=== PATIENT | female | born 1950 | race Caucasian/White ===

== ENCOUNTER 2020-02-09 08:26 | Outpatient (REF) | payer MEDICARE, BC, SELFPAY ==
[2020-02-09 21:02] LABS: Abs Immature Grans 0.01 k/cumm (0.0-0.09); Absolute Basophil Count 0.02 k/cumm (0.0-0.2); Absolute Eosinophil Count 0.07 k/cumm (0.0-0.7); Absolute Lymphocyte Count 1.29 k/cumm (1.2-3.4); Absolute Monocyte Count 0.33 k/cumm (0.11-0.7); Basophils % 0.5; Eosinophils % 1.6; HCT 39.7 % (36.0-46.0); Immature Grans % 0.2 %; Lymphocytes % 29.2; Mean Corp. HGB Concentration 32.7 g/dL (32.0-36.0); Mean Corpuscular Hemoglobin 30.7 pg (27.0-33.0); Mean Corpuscular Volume 93.6 fL (80-95); Mean Platelet Volume 12.5 fL (8.0-11.0); Monocytes % 7.5; Platelet Count 166 x1000/uL (130-400); RBC 4.24 m/cumm (4.00-5.20); RBC Distribution Width 13.2 % (11.7-14.6); White Blood Cell Count 4.42 k/cumm (4.4-10.8)
[2020-02-09 21:07] LABS: ALT 20 U/L (14-59); AST 20 U/L (15-37); Albumin 3.8 g/dL (3.4-5.0); Alkaline Phosphatase 60 U/L (46-116); Anion Gap 6.8 mmol/L (3-11); BUN 13 mg/dL (7-18); Bilirubin, Total 0.8 mg/dL (0.2-1.0); CO2 30.2 mmol/L (21.0-32.0); CREATININE 0.77 mg/dL (0.55-1.02); Calculated LDL 151 mg/dL (<100); Chloride 105 mmol/L (98-107); Cholesterol 237 mg/dL (<200); Glucose 86 mg/dL (74-106); HDL Cholesterol 70 mg/dL (40-60); Potassium 3.9 mmol/L (3.5-5.1); Sodium 142 mmol/L (136-145); Total Protein 6.9 g/dL (6.4-8.2); Triglyceride 81 mg/dL (<150)
== END 2020-02-09 08:46 ==
LOC: NCHCN 08:26
PROVIDERS: PCP Physician Assistant; Visit Provider Physician Assistant
DX: R03.0 Elevated blood-pressure reading, without diagnosis of hypertension (principal); E78.89 Other lipoprotein metabolism disorders; Z87.891 Personal history of nicotine dependence
CPT/HCPCS: 80053; 80061; 85025

== ENCOUNTER 2020-05-02 08:28 | Emergency (ER) | payer MEDICARE, BC, SELFPAY ==
[2020-05-02] VITALS (38 sets, daily range): BP systolic 127–158; BP diastolic 58–88; PULSE 55–72; RESP 10–21; TEMP 36.4; O2SAT 94–100
--- NOTE | 2020-05-02 09:00 | DI.MRI_ITS ---
EXAM: MR BRAIN WO CLINICAL HISTORY: Dizziness, ataxia. TECHNIQUE: Multiplanar multisequence MRI was performed. COMPARISON: No exams were available for comparison FINDINGS: MR examination of brain was performed according to the usual protocol. There is significant motion a rtifact on multiple pulse sequences. Note is made small amount of fluid in a few left mastoid air cells, this may represent a serous masto iditis. Otherwise the temporal bone structures appear intact. Orbital structures appear intact. Pituitary is unremarkable in appearance as visualized. There is normal flow void in the xemaqf-gf-Uh llis vasculature. There are minimal Seema ventricular white matter signal changes consistent with mild microvascular isc hemic change. No other focal signal abnormality identified in the brain. Diffusion weighted is unremarkable, no evidence of infarction. Susceptibility weighted imaging shows no evidence of intracranial hemorrhage. IMPRESSION: Minimal microvascular ischemic changes of white matter. Examination is otherwise within normal limit s. DATA REPOSITORY:
--- NOTE | 2020-05-02 09:09 | W.ED.GENAD ---
Discharge Plan Disposition Patient Disposition: HOME Condition: Stable Discharge Details Chief Complaint: Dizzy/Sync Clinical Impression: Dizziness Primary Care Provider: Annamaria Angulo ED Provider: Hasmukh Collins Home Meds and New Rx's Prescriptions: New ondansetron HCl [Zofran] 4 mg tablet 4 mg PO Q8H PRNQty: 10 RF: 0 meclizine 25 mg tablet 25 mg PO TID PRN (Reason: dizziness) Qty: 10 RF: 0 Continued Antacid Extra-Strength 1 EACH tablet 2 tab-cap PO ONCE Qty: 1 RF: 0 cholecalciferol (vitamin D3) 1,000 UNIT capsule 1,000 unit PO DAILY RF: 0 Co Q-10 300 MG capsule 300 mg PO DAILY RF: 0 losartan 25 mg Tablet 25 mg PO DAILY RF: 0 PreserVision AREDS [id number] Tablet 1 tab PO DAILY RF: 0 Discharge Instructions Instructions: Dizziness (ED) Additional Instructions: Work-up in the ER did not reveal any obvious emergent process. Antivert and meclizine as directed. Please watch for new or worsening symptoms and return to the ER for any concerns. I do recommend reaching out your primary care provider today or tomorrow for prompt outpatient reevaluation Medical Decision Making <PAULINA Beverly - Last Filed: 05/02/20 12:50> 70-year-old female, history of smoking, hypertension, GERD, presents with dizziness, feeling unsteady, nausea and vomiting that began yesterday. Seems to be positional in nature. Denies recent illness or trauma, she is not anticoagulated. She has never had these symptoms in the past. Patient appears well, nontoxic is currently neurologically intact. As above she does have cerumen excessively in bilateral canals, does make evaluating her TMs difficult. Certainly appears to be more vertigo-like as opposed to posterior stroke however given her age and comorbidities will obtain MRI of brain, cardiac work-up, give IV fluids, Zofran and then give oral meclizine. Patient reports claustrophobia, 1 mg IV Ativan given prior to MRI Upon return from MRI patient reports that she feels dramatically improved although symptoms do maintain minimally. Patient was able to ambulate steadily to the restroom. Laboratory values appear unremarkable for emergent process. Potassium of 3.3 noted, p.o. potassium given. Case was discussed with Dr. Baron who personally evaluated the patient. Please see her note. MRI reveals minimal microvascular ischemic change of the white matter. Patient is agreeable to being observed in the ER for repeat EKG and troponin. Repeat EKG performed at 1207 reveals sinus rhythm, ventricular rate of 66. First-degree AV block. No STEMI. No dynamic changes when compared to initial EKG. Reviewed and interpreted with Dr. Baron. Repeat troponin is less than 0.05. Upon reevaluation patient is resting comfortably. No vomiting while under my care. She reports feeling nearly asymptomatic and is comfortable discharge. We discussed her MRI, laboratory work-up here in the ER. Patient is relieved and has no additional questions or concerns. Will be discharged with oral Zofran and meclizine. Patient was encouraged to contact her primary care provider later today for prompt outpatient reevaluation, return to the ER for new or evolving symptoms. Upon discharge patient remains neurologically intact is able to ambulate steadily Medical Records Medical records reviewed: Yes I reviewed the patient's medical records. Lab Data Lab results reviewed: Yes I reviewed the patient's lab results. Lab results narrative: Laboratory Tests Range/Units 05/02/20 05/02/20 05/02/20 09:15 09:15 09:15 WBC (4.4-10.8) k/cumm RBC (4.00-5.20) m/cumm Hgb (12.0-15.5) g/dL Hct (36.0-46.0) % MCV (80-95) fL MCH (27.0-33.0) pg MCHC (32.0-36.0) g/dL RDW (11.7-14.6) % Plt Count (130-400) x1000/uL MPV (8.0-11.0) fL Immature Gran % % Neutrophils % Lymphocytes % Monocytes % Eosinophils % Basophils % Absolute Neutrophils (1.2-6.7) k/cumm Absolute Lymphocytes (1.2-3.4) k/cumm Absolute Monocytes (0.11-0.7) k/cumm Absolute Eosinophils (0.0-0.7) k/cumm Absolute Basophils (0.0-0.2) k/cumm PT (9.3-11.0) sec 10.4 INR (0.9-1.1) 1.0 APTT (21.0-31.4) sec 20.4 L Sodium (136-145) mmol/L 139 Potassium (3.5-5.1) mmol/L 3.3 L Chloride (98-107) mmol/L 104 Carbon Dioxide (21.0-32.0) mmol/L 26.5 Anion Gap (3-11) mmol/L 8.5 BUN (7-18) mg/dL 18 Creatinine (0.55-1.02) mg/dL 0.83 Estimated GFR/1.73 m2 (mL/min/1.73m2) >= 60.00 Glucose (74-106) mg/dL 112 H Calcium (8.5-10.1) mg/dL 8.4 L Magnesium (1.8-2.4) mg/dL 1.9 Total Bilirubin (0.2-1.0) mg/dL 0.6 AST (15-37) U/L 21 ALT (14-59) U/L 22 Alkaline Phosphatase (46-116) U/L 54 Troponin I (<0.06) ng/mL < 0.05 Total Protein (6.4-8.2) g/dL 7.2 Albumin (3.4-5.0) g/dL 3.9 TSH (0.36-3.74) uIU/mL 2.14 Urine Color (Yellow) Urine Clarity (Clear) Urine pH (5-8) Ur Specific [place] (1.005-1.025) Urine Protein (Negative) mg/dL Urine Ketones (Negative) mg/dL Urine Blood (Negative) Urine Nitrite (Negative) Urine Bilirubin (Negative) Urine Urobilinogen (Up TO 0.2) EU/dL Ur Leukocyte Esterase (Negative) Urine RBC (0-2) HPF Urine WBC (0-5) HPF Ur Epithelial Cells (Negative) HPF Urine Crystals (Negative) HPF Urine Bacteria (Negative) HPF Urine Casts (Negative) LPF Urine Mucus (Negative) Urine Other (Negative) Ur Culture Indicated? Urine Glucose (Negative) mg/dL Range/Units 05/02/20 05/02/20 05/02/20 09:15 10:30 12:00 WBC (4.4-10.8) k/cumm 6.30 RBC (4.00-5.20) m/cumm 4.17 Hgb (12.0-15.5) g/dL 12.8 Hct (36.0-46.0) % 38.5 MCV (80-95) fL 92.3 MCH (27.0-33.0) pg 30.7 MCHC (32.0-36.0) g/dL 33.2 RDW (11.7-14.6) % 12.8 Plt Count (130-400) x1000/uL 157 MPV (8.0-11.0) fL 12.5 H Immature Gran % % 0.2 Neutrophils % 85.9 Lymphocytes % 8.9 Monocytes % 4.6 Eosinophils % 0.2 Basophils % 0.2 Absolute Neutrophils (1.2-6.7) k/cumm 5.42 Absolute Lymphocytes (1.2-3.4) k/cumm 0.56 L Absolute Monocytes (0.11-0.7) k/cumm 0.29 Absolute Eosinophils (0.0-0.7) k/cumm 0.01 Absolute Basophils (0.0-0.2) k/cumm 0.01 PT (9.3-11.0) sec INR (0.9-1.1) APTT (21.0-31.4) sec Sodium (136-145) mmol/L Potassium (3.5-5.1) mmol/L Chloride (98-107) mmol/L Carbon Dioxide (21.0-32.0) mmol/L Anion Gap (3-11) mmol/L BUN (7-18) mg/dL Creatinine (0.55-1.02) mg/dL Estimated GFR/1.73 m2 (mL/min/1.73m2) Glucose (74-106) mg/dL Calcium (8.5-10.1) mg/dL Magnesium (1.8-2.4) mg/dL Total Bilirubin (0.2-1.0) mg/dL AST (15-37) U/L ALT (14-59) U/L Alkaline Phosphatase (46-116) U/L Troponin I (<0.06) ng/mL < 0.05 Total Protein (6.4-8.2) g/dL Albumin (3.4-5.0) g/dL TSH (0.36-3.74) uIU/mL Urine Color (Yellow) Yellow Urine Clarity (Clear) Clear Urine pH (5-8) 6.0 Ur Specific [place] (1.005-1.025) 1.025 Urine Protein (Negative) mg/dL Trace H Urine Ketones (Negative) mg/dL Trace H Urine Blood (Negative) Negative Urine Nitrite (Negative) Negative Urine Bilirubin (Negative) Negative Urine Urobilinogen (Up TO 0.2) EU/dL 0.2 Ur Leukocyte Esterase (Negative) Negative Urine RBC (0-2) HPF 0-2 Urine WBC (0-5) HPF 3-5 Ur Epithelial Cells (Negative) HPF Negative Urine Crystals (Negative) HPF Moderate amorphous Urine Bacteria (Negative) HPF Urine Casts (Negative) LPF Comment Urine Mucus (Negative) Heavy Urine Other (Negative) Rare renal Ur Culture Indicated? No Urine Glucose (Negative) mg/dL Negative ECG Data Attestation: I personally reviewed and interpreted this ECG (s) as follows: Prior ECG tracings: available for review Interpretation: EKG performed at 0846 reviewed and interpreted with Dr. Baron. Sinus rhythm, ventricular rate of 62. First-degree AV block. [place] interval 220. No STEMI <Paulette Baron MD - Last Filed: 05/02/20 13:08> I have seen and examined the patient and agree with the exam and history as documented by the PA. Iris Ball is a 70-year-old woman presenting to the emergency department with new onset sensation of room spinning, worse with turning her head. Patient without similar symptoms in the past. Patient reports history of tinnitus over the past few months that has not changed, denies other ear complaints, had one episode of vomiting since onset of vertigo. Concern for central versus peripheral vertigo, suspect referral but given patient has not had similar symptoms in the past plan for MRI. Labs reviewed, nondiagnostic. Potassium 3.3, will replete with 40 mEq p.o. Patient reporting significant improvement in her symptoms since taking meclizine. MRI reported as negative per radiology. Patient walking without assistance in the emergency department. Repeat troponin negative. Plan for Rx meclizine. Patient discharged home by PA. Medical Records Medical records reviewed: Yes I reviewed the patient's medical records. Lab Data Lab results reviewed: Yes I reviewed the patient's lab results. ECG Data Attestation: I personally reviewed and interpreted this ECG (s) as follows: Interpretation: EKG shows sinus rhythm at 62, first-degree heart block, normal axis, no STEMI, nondiagnostic EKG Repeat EKG shows sinus rhythm at 66, first-degree block, normal axis, no major change from prior, no STEMI, nondiagnostic EKG HPI <PAULINA Beverly - Last Filed: 05/02/20 12:50> General Mode of arrival: ambulatory. Date/Time Provider Initiated Documentation: 05/02/20 08:31. Limitations to Documentation: no limitations. Information obtained by: patient. HPI Narrative: This is a 70-year-old female with history of hypertension, former smoker, who reports feeling dizzy, off balance, that began yesterday evening while reading a book. She reports that the sensation is worse with movement of her head, causing nausea, vomiting 1 time today. She has never felt this way before. She is not anticoagulated. She describes the sensation as being more off balanced with a small amount of dizziness, but no syncopal feeling. She denies any recent illness or trauma. She denies any pain whatsoever. Denies headache, neck pain, visual changes, chest pain, shortness of breath, abdominal pain, change in bowel or bladder habits, dysuria, focal weakness, numbness or tingling. Related Data Home Medications Medication Instructions Recorded Confirmed Antacid Extra-Strength 2 tab-cap PO ONCE #1 tab-cap 12/01/13 05/02/20 Co Q-10 300 mg PO DAILY 12/01/13 05/02/20 cholecalciferol (vitamin D3) 1,000 unit PO DAILY 12/01/13 05/02/20 PreserVision AREDS 1 tab PO DAILY 05/02/20 05/02/20 losartan 25 mg PO DAILY 05/02/20 05/02/20 meclizine 25 mg PO TID PRN #10 tab 05/02/20 ondansetron HCl [Zofran] 4 mg PO Q8H PRN #10 tab 05/02/20 Previous Rx's Medication Instructions Recorded meclizine 25 mg PO TID PRN #10 tab 05/02/20 ondansetron HCl [Zofran] 4 mg PO Q8H PRN #10 tab 05/02/20 Allergies Allergy/AdvReac Type Severity Reaction Status Date / Time Penicillins Allergy Intermediate ITCHING Unverified 05/02/20 08:41 General Stated Complaint: Dizzy/Sync ALLAN: 3 Review of Systems <PAULINA Beverly - Last Filed: 05/02/20 12:50> Constitutional Constitutional: Denies fatigue, Denies fever(s), Denies headache(s) and Denies weakness Eyes Eyes: Denies change in vision ENT Ears, Nose, Mouth, and Throat: Reports vertigo, Reports dizziness, Denies otalgia, Denies headache(s), Denies neck pain and Denies sore throat Cardiovascular Cardiovascular: Denies chest pain, Denies irregular heart rhythm and Denies dyspnea Respiratory Respiratory: Denies cough and Denies dyspnea Gastrointestinal Gastrointestinal: Denies abdominal pain, Denies diarrhea, Reports nausea and Reports vomiting Genitourinary Genitourinary: Denies dysuria Musculoskeletal Musculoskeletal: Denies back pain, Denies myalgias, Denies neck pain, Denies numbness and Denies tingling Integumentary/Breasts Skin/Breast: Denies rash Neurologic Neurologic: Reports vertigo, Reports dizziness, Denies headache(s), Denies numbness, Denies tingling and Denies weakness Endocrine Endocrine: Denies fatigue PFSH <PUALINA Beverly - Last Filed: 05/02/20 12:50> Surgical History section X 2 Ligation of fallopian tube Social History Smoking/Tobacco Use Status: Former Tobacco Use Alcohol Intake: current Alcohol Intake frequency: a few times a week Alcohol type: wine Drug use: Never Substance use type: does not use Do you feel safe at home: Yes Do you feel safe in your relationship?: Yes Exam <PAULINA Beverly - Last Filed: 05/02/20 12:50> Const General: cooperative, healthy appearing, comfortable and no acute distress Orientation: alert, awake and oriented x3 HENMT Head: normal to inspection, normocephalic and atraumatic Ears: EAC abnormal excessive cerumen bilaterally Face and sinus: normal facial exam Mouth: moist mucous membranes Throat: posterior oropharynx normal Eyes General: appearance normal, both eyes and all related structures Alignment and Position: alignment normal Periorbital: periorbital findings normal Eyelids: eyelids normal Conjunctivae: conjunctivae normal Sclera: sclerae normal Cornea: corneas normal Pupils: PERRL EOM: EOM intact bilaterally Direct ophthalmoscopy: normal light reflex Neck Neck: normal visual inspection, full ROM, no meningeal signs, trachea midline, supple and nontender Resp Effort & Inspection: normal respiratory effort and able to speak in complete sentences Auscultation: clear to auscultation bilaterally Cardio Rate: regular rate Rhythm: regular rhythm GI Inspection: normal to inspection Palpation: soft, not firm, no guarding, not rigid and nontender Back/Spine/Pelvis Back: No back tenderness Skin General skin exam: no rashes or lesions noted Neuro General: patient alert, patient awake, patient oriented x3, gait normal, moves all extremities and no focal motor deficits Cranial Nerves: CN's II-XI intact bilaterally Cognition: normal cognition Speech: speech normal Gait: normal gait Motor: muscle tone normal throughout and strength 5/5 throughout Sensory Exam: no sensory deficits noted Coordination: brtemp-ee-[id number] test normal, Does not sway with eyes open and rapid alternating movement UE normal Extrem General: normal to inspection, full ROM and capillary refill normal Psych Appearance: grossly normal Mental Status: mental status grossly normal Course <PAULINA Beverly - Last Filed: 05/02/20 12:50> Vital Signs Vital signs: Vital Signs Temperature 36.4 C L 05/02/20 08:34 Pulse 67 05/02/20 08:34 Blood Pressure 158/75 H 05/02/20 08:34 Pulse Oximetry 99 05/02/20 08:34 Temperature 36.4 C L 05/02/20 08:34 Temperature Source Temporal Artery Scan 05/02/20 08:34 Pulse 67 05/02/20 08:34 Respiratory Rate 18 05/02/20 08:39 Respiratory Effort Non-Labored 05/02/20 08:39 Respiratory Depth Normal 05/02/20 08:39 Respiratory Pattern Normal 05/02/20 08:39 Blood Pressure 158/75 H 05/02/20 08:34 Blood Pressure Position Sitting 05/02/20 08:34 Pulse Oximetry 99 05/02/20 08:34 Oxygen Delivery Method Room Air 05/02/20 08:34 Oxygen Flow Rate 0 05/02/20 08:34 Pain Level 0 05/02/20 08:34
[2020-05-02] MEDS: Ondansetron 4 MG/2 ML VIAL IVP (09:23)
[2020-05-02] MEDS: Normal Saline 1,000 ML 1000 ML IV (09:23)
[2020-05-02] MEDS: Meclizine 25 MG TAB PO (09:23)
[2020-05-02 09:25] LABS: Abs Immature Grans 0.01 k/cumm (0.0-0.09); Absolute Basophil Count 0.01 k/cumm (0.0-0.2); Absolute Eosinophil Count 0.01 k/cumm (0.0-0.7); Absolute Lymphocyte Count 0.56 k/cumm (1.2-3.4); Absolute Monocyte Count 0.29 k/cumm (0.11-0.7); Absolute Neutrophil Count 5.42 k/cumm (1.2-6.7); Basophils % 0.2; Eosinophils % 0.2; HCT 38.5 % (36.0-46.0); HGB 12.8 g/dL (12.0-15.5); Immature Grans % 0.2 %; Lymphocytes % 8.9; Mean Corp. HGB Concentration 33.2 g/dL (32.0-36.0); Mean Corpuscular Hemoglobin 30.7 pg (27.0-33.0); Mean Corpuscular Volume 92.3 fL (80-95); Mean Platelet Volume 12.5 fL (8.0-11.0); Monocytes % 4.6; Neutrophils % 85.9; Platelet Count 157 x1000/uL (130-400); RBC 4.17 m/cumm (4.00-5.20); RBC Distribution Width 12.8 % (11.7-14.6)
[2020-05-02] MEDS: LORazepam 2 MG/ML VIAL 1 MG IVP (09:39)
[2020-05-02 09:42] LABS: ALT 22 U/L (14-59); AST 21 U/L (15-37); Albumin 3.9 g/dL (3.4-5.0); Alkaline Phosphatase 54 U/L (46-116); Anion Gap 8.5 mmol/L (3-11); BUN 18 mg/dL (7-18); Bilirubin, Total 0.6 mg/dL (0.2-1.0); CO2 26.5 mmol/L (21.0-32.0); CREATININE 0.83 mg/dL (0.55-1.02); Calcium 8.4 mg/dL (8.5-10.1); Chloride 104 mmol/L (98-107); Glucose 112 mg/dL (74-106); Potassium 3.3 mmol/L (3.5-5.1); Sodium 139 mmol/L (136-145); Total Protein 7.2 g/dL (6.4-8.2)
[2020-05-02 09:46] LABS: Troponin I < 0.05 ng/mL (<0.06)
[2020-05-02 09:48] LABS: PTT Activated 20.4 sec (21.0-31.4); Prothrombin Time 10.4 sec (9.3-11.0)
[2020-05-02 10:15] LABS: Magnesium 1.9 mg/dL (1.8-2.4); TSH 2.14 uIU/mL (0.36-3.74)
[2020-05-02] MEDS: Potassium Chloride 20 MEQ TABCR 40 MEQ PO (10:37)
[2020-05-02 10:41] LABS: Bilirubin Negative (Negative); Blood Negative (Negative); Clarity Clear (Clear); Glucose Negative (Negative); Ketones Trace mg/dL (Negative); Leukocyte Esterase Negative (Negative); Nitrite Negative (Negative); Specific Gravity 1.025 (1.005-1.025); Urobilinogen 0.2 EU/dL (Up TO 0.2)
[2020-05-02 10:59] LABS: Epithelial Cells Negative HPF (Negative); Other Cells Rare Renal (Negative); RBC 0-2 HPF (0-2)
[2020-05-02 11:00] LABS: Crystals Moderate Amorphous HPF (Negative); Mucus Heavy (Negative)
[2020-05-02 11:01] LABS: C & S Indicated? No
[2020-05-02 12:27] LABS: Troponin I < 0.05 ng/mL (<0.06)
== END 2020-05-02 12:53 | disposition home or self-care (01) ==
PROVIDERS: Emergency Provider Physician Assistant; PCP Physician Assistant
DX: R42 Dizziness and giddiness (principal); R11.2 Nausea with vomiting, unspecified; E87.6 Hypokalemia; I10 Essential (primary) hypertension
CPT/HCPCS: 36415; 36416; 80053; 82962; 93005; 96361; 96374; 96375; 99285; 70551; 81003; 81015; 83735; 84443; 84484; 85025; 85610; 85730; 93010; 99284; J2060; J2405

== ENCOUNTER 2020-06-01 02:12 | Outpatient (CLI) | payer MEDICARE, BC, SELFPAY ==
--- NOTE | 2020-06-01 | DI.MAMMO_ITS ---
EXAM: MG MAMMO SCREENING CLINICAL HISTORY: SCREENING, Z12.31 TECHNIQUE: Bilateral full field digital CC and MLO mammographic images were obtained with 3D tomosyn thesis and utilizing computer aided detection (CAD). COMPARISON: Available for comparison. FINDINGS: Masses/Architectural Distortion: The nodule in the upper outer quadrant of the right breast appears u nchanged. Microcalcifications: No suspicious pleomorphic-type are seen. Skin Thickening/Nipple Retraction: None. IMPRESSION: 1. No significant interval change with no specific features of malignancy noted. 2. Unless there is more urgent need, screening mammography is recommended, as per [employer] guidelines. BI-RADS Category 1 - Negative Breast Density - Category B - Scattered areas of fibroglandular density A negative radiographic report should not delay biopsy if a dominant or clinically suspicious mass is present. Up to ten percent of cancers are not identified on mammography. A negative report may reinforce clinical impression. Adenosis and dense breasts may obscure an underlying neoplasm. False positive reports average 6 to 10%. Patient will receive a letter notifying them of these results.
== END 2020-06-01 02:32 ==
PROVIDERS: PCP Physician Assistant; Visit Provider Physician Assistant
DX: Z12.31 Encounter for screening mammogram for malignant neoplasm of breast (principal)
CPT/HCPCS: 77063; 77067

== ENCOUNTER 2021-07-10 10:19 | Outpatient (REF) | payer MEDICARE, BC, SELFPAY ==
[2021-07-10 19:48] LABS: ALT 18 U/L (14-59); AST 19 U/L (15-37); Albumin 3.8 g/dL (3.4-5.0); Alkaline Phosphatase 58 U/L (46-116); Anion Gap 7.7 mmol/L (3-11); BUN 11 mg/dL (7-18); Bilirubin, Total 0.8 mg/dL (0.2-1.0); CO2 29.3 mmol/L (21.0-32.0); CREATININE 0.7 mg/dL (0.55-1.02); Calcium 8.6 mg/dL (8.5-10.1); Calculated LDL 142 mg/dL (<100); Chloride 104 mmol/L (98-107); Cholesterol 235 mg/dL (<200); Glucose 87 mg/dL (74-106); HDL Cholesterol 73 mg/dL (40-60); Potassium 3.8 mmol/L (3.5-5.1); Sodium 141 mmol/L (136-145); Total Protein 7.1 g/dL (6.4-8.2); Triglyceride 101 mg/dL (<150)
== END 2021-07-10 10:20 | disposition home or self-care (01) ==
LOC: NCHCN 10:19
PROVIDERS: PCP Physician Assistant; Visit Provider Physician Assistant
DX: I10 Essential (primary) hypertension (principal); E78.5 Hyperlipidemia, unspecified
CPT/HCPCS: 80053; 80061

== ENCOUNTER 2021-08-23 11:55 | Outpatient (REF) | payer MEDICARE, BC, SELFPAY ==
[2021-08-25 10:53] LABS: COVID-19 RT-PCR UVMMC Result Negative (Negative)
== END 2021-08-23 11:56 | disposition home or self-care (01) ==
LOC: NCHCN 11:55
PROVIDERS: PCP Physician Assistant; Visit Provider Internal Medicine
DX: Z20.822 Contact with and (suspected) exposure to COVID-19 (principal)
CPT/HCPCS: U0003

== ENCOUNTER 2022-04-04 15:44 | Outpatient (REF) | payer MEDICARE, BC, SELFPAY ==
[2022-04-04 21:55] LABS: Anion Gap 7.8 mmol/L (3-11); BUN 11 mg/dL (7-18); CO2 29.2 mmol/L (21.0-32.0); CREATININE 0.7 mg/dL (0.55-1.02); Calcium 8.6 mg/dL (8.5-10.1); Chloride 104 mmol/L (98-107); Glucose 86 mg/dL (74-106); Potassium 3.9 mmol/L (3.5-5.1); Sodium 141 mmol/L (136-145)
== END 2022-04-04 15:45 | disposition home or self-care (01) ==
LOC: NCHCN 15:44
PROVIDERS: PCP Physician Assistant; Visit Provider Physician Assistant
DX: I10 Essential (primary) hypertension (principal)
CPT/HCPCS: 80048

== ENCOUNTER → 2022-06-08 00:03 | Outpatient (CLI) | payer MEDICARE, BC, SELFPAY ==
--- NOTE | 2022-06-08 | DI.MAMMO_ITS ---
Exam(s) MAMMO SCREENING EXAM: MAMMO SCREENING CLINICAL HISTORY: SCREENING, Z12.31 TECHNIQUE: Mammograms were interpreted according to the usual protocol including computer analysis w [employer] CAD system, tomosynthesis and C-view imaging. COMPARISON: 2020 FINDINGS: The breasts are composed of mainly fatty density , Breast Density category A. No suspicious masses or suspicious microcalcifications are seen. No skin thickening or abnormal axillary lymph nodes are seen. There has been no significant change from prior exams. IMPRESSION: BI-RADS Category 1, Negative mammogram Yearly screening mammography is recommended. Breast Density - Category A, fatty density. A negative radiographic report should not delay biopsy if a dominant or clinically suspicious mass is present. Up to ten percent of cancers are not identified on mammography. A negative report may reinforce clinical impression. Adenosis and dense breasts may obscure an underlying neoplasm. False positive reports average 6 to 10%. Patient will receive a letter notifying them of these results.
--- OUTSIDE RECORDS SUMMARY | 2022-06-08 00:05 | XMS_ITS | Encounter Summary ---
:1950 Author Organization [facility] [place] [address] Care Team Providers Name Role Phone Lorne Sorenson MD Primary Care Provider Reason for Visit Reason Comments Eye Problem Follicular bleharoconjunctiv itis ou. failed response to topical tx. first dx'd 2000 os. re ccurence 2010. aactual date 10/11. pt states eyes have gotten a little better over last couple of weeks but oozing and stickiness remains. ou. puff y at times, needs more light to read,. tearing. Encounter Details Date Type Department Care Team Description 05/23/2011 Office Visit Ophthalmology at [facility] Jose Bourgeois Conjunctivitis, chronic, fol licular (Primary Dx); [facility] MD Alejandro Blepharitis of both eyes; [place] [address] CENTER [phone] OPHTHALMOLOGY DEPT. [place], [place] [address] Social History Tobacco Use Types Packs/Day Years Used Date Former Smoker Quit: 05/23/19 80 Alcohol Use Standard Drinks/Week Comments Yes 0 (1 standard drink = 0.6 oz pure alcoho l) wine dinner Alcohol Habits Answer Date Recorded How often do you have a drink containing alcohol? Not asked How many drinks containing alcohol do you have on a typical Not asked day when you are drinking? How often do you have six or more drinks on one occasion? No t asked Comment: wine dinner 05/23/2011 Sex Assigned at Date Recorded Not on file documented as of this encounter Progress Notes Jose Michelle MD - 05/23/2011 9:43 AM EDT Ro Ball is a 61 y.o.. Encounter Diagnoses Name Primary? Conjunctivitis, chronic, follicular Yes ??? Blepharitis of both eyes ??? Cataract Symptoms and findings seem much improved as compared with your May 10 letter to me. The DDx here includes drug reaction (most likely), chlamydial conjunctivitis (doubt), chronic slow growing bacterial conjunctivitis (possible), viral conjunctivitis (doubt) or molluscum contagiosa related (none seen). I am hopeful that her symptoms will continue to resolve off eye drop therapy. We discussed the possibility of skin testing to see if she is allergic to any of the eye meds she was on or their components, but she declined this option. Plan: - Obtained conjunctival culture- will call prn unusual organsims - Continue current AT therapy with no addition of meds - Follow up 1 month with you or myself or as needed - Findings and concerns discussed with Ro and she expresses understanding. -Upon Return IOP documented in this encounter Nursing Notes 05/23/2011 8:45 AM EDT >> JOSE MICHELLE MD SatMay 23, 2011 9:46 AM As below and in Dr. Garg letter. Follicular conjunctivitis in patient tx with multiple eye meds for blepharoconjunctivitis tx with multiple meds including t- dex, zylet, azocyte - also has history episcleritis 2000. Off everything except AT since mid april. Better but still some AM discharge >> LUPIS GASTELUM SatMay 23, 2011 9:18 AM Description:Patient presents with: Eye Problem - Follicular bleharoconjunctivitis ou. failed response to topical tx. first dx'd 2000 os. re ccurence 12/2010. actual date 10/11. pt states eyes have gotten a little better over last coupleof weeks but oozing and stickiness remains. ou. puffy at times, needs more light to read,. tearing. Location: both eye Duration: 8 months Rapidity of Onset:unknown Severity: relative to dx Condition:Improving Somewhat over the last couple of weeks Pain:none Associated Symptoms: tearing, puffiness, oozing. No pain no photophobia see attached note Dr. Davis documented in this encounter Plan of Treatment Not on filedocumented as of this encounter Procedures Procedure Name Priority Date/Time Associated Diagnosis Comme nts EYE CULTURE Routine 05/23/2011 12:21 PM Conjunctivitis, Resul ts for this EDT chronic, follicular procedur e are in the results section . documented in this encounter Results Eye culture Conjunctiva; Eye, Right (05/23/2011 12:21 PM EDT) Component Value Ref Test Analysis Performed At [facility] [employer] Range Method Time Signature Eye Culture CERNER ? Patient Name: RO BALL ? Ordered By: JOSE MICHELLE [facility] ? MR#: [id number] ?LOC: ??4B ? /Sex: ??1950 (61 years), ? Female ? PROCEDURE: Eye Culture ?SOURCE: Conjunct ? COLLECTED: 05/23/2011 12:21 ? BODY SITE: Right Eye ? STARTED: 05/23/2011 12:21 ? STAINS / PREPARATIONS ? Gram Stain Report ? Verified:05/23/2011 14:27 ? Few White Blood Cells seen ? No microorganisms seen. ? FINAL REPORT ? Final Report ? Verified:05/26/2011 11:12 ? Rare Coagulase negative Staphylococcus species ? PRELIMINARY REPORT ? Preliminary Report ? Verified:05/24/2011 07:52 ? Rare Coagulase negative Staphylococcus species ? Specimen (Source) Anatomical Collection Method Collection Time Re ceived Time Location / / Volume Laterality Specimen from RIGHT EYE 05/23/2011 12:21 05/23/2011 conjunctiva STRUCTURE / PM EDT 12:21 PM EDT (specimen) Unknown Jose Michelle MD MICROBIOLOGY - GENERAL ORDER CAROL Performing Organization Address City/State/ZIP Code Phon e Number [address] LABORATORY [facility] documented in this encounter Visit Diagnoses Diagnosis Conjunctivitis, chronic, follicular - Pr imary Chronic follicular conjunctivitis Blepharitis of both eyes Blepharitis, unspecified Cataract Unspecified cataract documented in this encounter Care Teams Rn Obgyn Relationship Specialty Start Date End Date Lorne Sorenson MD PCP - General 05/23/11 [address] [place] [address] documented as of this encounter
--- OUTSIDE RECORDS SUMMARY | 2022-06-08 00:05 | XMS_ITS | Clinical Summary ---
:1950 Author Organization [facility] Address [address] [place] [id number] Care Team Providers Name Role Phone Unknown, Provider Primary Care Provider Social History Tobacco Use Types Packs/Day Years Used Date Never Assessed Sex Assigned at Date Recorded Not on file Plan of Treatment Health Maintenance Due Date Last Done Comments Fall Risk Screening 02/26/2016 Care Teams Blow Moulding Machine Operator Relationship Specialty Start Date End Date Unknown, Provider, PCP - General 10/15/15
--- OUTSIDE RECORDS SUMMARY | 2022-06-08 00:05 | XMS_ITS | Encounter Summary ---
:[address] [facility] Address [address] [place] [address] Care Team Providers Name Role Phone Unavailable Primary Care Provider Unavailable Encounter Details Date Type Department Care Team Description 05/22/2007 Results Only [facility] - Autumn Hamilton od, Mei Allen, INSPECTORS AND REGULATORY OFFICERS conversion [address] [place] [phone] (Wo rk) Social History Tobacco Use Types Packs/Day Years Used Date Never Assessed Sex Assigned at Date Recorded Not on file documented as of this encounter Plan of Treatment Not on filedocumented as of this encounter Procedures Procedure Name Priority Date/Time Associated Diagnosis Comme nts CYTOPATHOLOGY Routine 05/22/2007 0:00 EDT Results for this procedure are i n the results section . documented in this encounter Results CYTOPATHOLOGY (05/22/2007 0:00 EDT) Pathology Report: CYTOPATHOLOGY REPORT [facility] Reports generated via electronic interface contain harley ginal data; however they are lacking the format of the original re port. Caution should be taken when reading/interpreting unfo rmatted reports. Name: ? RO BALL ? Accession #: ? [id number] : ? 1950 (Age: 57) ??F ?Collect Date: ? 05/03 Location: ? [facility] ? Receive Date : ? 05/23/2007 Provider: ?MEI AVILES INSPECTORS AND REGULATORY OFFICERS Copy to: ? Specimen/Source: ? ThinPrep Pap Test, Cervix/Endocervix, processed on [employer] ThinPrep Imaging System, with manual evaluation Last Menstrual Period: ? 2001 Other: ? HPVA - HPV testing requested if ASC-US on the current ThinPrep Pap test. ? SPECIMEN ADEQUACY ? Satisfactory for Evaluation - assessment of transformation zone component not appl icable ( e.g. atrophy, vaginal sample, hysterectomy) GENERAL CATEGORIZATION ? Negative for Intraepithelial Lesion or Malignan cy ? Document reviewed and electronically signed by: ? Mei Sage, SCT(ASCP) ? Report Date: ??05/28/2007 14:26 End of Report Specimen Performing Organization Address City/State/ZIP Code Phon e Number [facility] [address] [place] [address] SERVICES [facility] [address] [place] [address] documented in this encounter Visit Diagnoses Not on filedocumented in this encounter
--- OUTSIDE RECORDS SUMMARY | 2022-06-08 00:05 | XMS_ITS | Encounter Summary ---
:1950 Author Organization [facility] Address [address] [place] [address] Care Team Providers Name Role Phone Unavailable Primary Care Provider Unavailable Encounter Details Date Type Department Care Team Description 05/28/[address] Results [address] [facility] - Autumn Hamilton od, Mei Allen, PLASTIC TECHNICIAN conversion [address] [place] [phone] (Wo rk) Social History Tobacco Use Types Packs/Day Years Used Date Never Assessed Sex Assigned at Date Recorded Not on file documented as of this encounter Plan of Treatment Not on filedocumented as of this encounter Procedures Procedure Name Priority Date/Time Associated Diagnosis Comme nts CYTOPATHOLOGY Routine 05/28/2006 0:00 EDT Results for this procedure are i n the results section . documented in this encounter Results CYTOPATHOLOGY (05/28/2006 0:00 EDT) Pathology Report: CYTOPATHOLOGY REPORT [facility] Reports generated via electronic interface contain harley ginal data; however they are lacking the format of the original re port. Caution should be taken when reading/interpreting unfo rmatted reports. Name: ? RO BALL ? Accession #: ? [id number] : ? 1950 (Age: 56) ??F ?Collect Date: ? 05/03 Location: ? [facility] ? Receive Date : ? 05/29/2006 Provider: ?MEI AVILES PLASTIC TECHNICIAN Copy to: ? Specimen/Source: ? ThinPrep Pap Test, Cervix/Endocervix, processed on [employer] ThinPrep Imaging System, with manual evaluation Last Menstrual Period: ? 2001 Other: ? HPVA - HPV testing requested if ASC-US on the current ThinPrep Pap test. ? SPECIMEN ADEQUACY ? Satisfactory for Evaluation - transformation zone component present GENERAL CATEGORIZATION ? Negative for Intraepithelial Lesion or Malignan cy ? Document reviewed and electronically signed by: ? ISSA Toney(ASCP) ? Report Date: ??05/31/2006 10:23 End of Report Specimen Performing Organization Address City/State/ZIP Code Phon e Number [facility] [address] [place] [address] SERVICES [facility] [address] [place] [address] documented in this encounter Visit Diagnoses Not on filedocumented in this encounter
--- OUTSIDE RECORDS SUMMARY | 2022-06-08 00:05 | XMS_ITS | Encounter Summary ---
:1950 Author Organization [facility] Address [address] [place] [address] Care Team Providers Name Role Phone Unavailable Primary Care Provider Unavailable Encounter Details Date Type Department Care Team Description 11/16/2003 Results Only [facility] - Autumn Hamilton od, Mei Allen, FAMILY WELFARE SOCIAL WORK PROFESSOR conversion [address] [place] [phone] (Wo rk) Social History Tobacco Use Types Packs/Day Years Used Date Never Assessed Sex Assigned at Date Recorded Not on file documented as of this encounter Plan of Treatment Not on filedocumented as of this encounter Procedures Procedure Name Priority Date/Time Associated Diagnosis Comme nts CYTOPATHOLOGY Routine 11/16/2003 0:00 EST Results for this procedure are i n the results section . documented in this encounter Results CYTOPATHOLOGY (11/16/2003 0:00 EST) Pathology Report: CYTOPATHOLOGY REPORT [facility] Reports generated via electronic interface contain harley ginal data; however they are lacking the format of the original re port. Caution should be taken when reading/interpreting unfo rmatted reports. Name: ? RO BALL ? Accession #: ? [id number] : ? 1950 (Age: 53) ??F ?Collect Date: ? 11/01 Location: ? [facility] ? Receive Date : ? 11/19/2003 Provider: ?MEI AVILES FAMILY WELFARE SOCIAL WORK PROFESSOR Copy to: ? Specimen/Source: ?Conventional Pap Test, Cer vix/Endocervix Last Menstrual Period: ? 11/02 ? SPECIMEN ADEQUACY ? Satisfactory for Evaluation - transformation zone component absent GENERAL CATEGORIZATION ? Negative for Intraepithelial Lesion or Malignan cy ? Document reviewed and electronically signed by: ? ISSA Singh(ASCP) ? Report Date: ??11/24/2003 09:50 End of Report Specimen Performing Organization Address City/State/ZIP Code Phon e Number [facility] [address] [place] [phone] SERVICES [facility] [address] [place] [address] documented in this encounter Visit Diagnoses Not on filedocumented in this encounter
--- OUTSIDE RECORDS SUMMARY | 2022-06-08 00:05 | XMS_ITS | Encounter Summary ---
:1950 Author Organization [facility] Address [address] [place] [address] Care Team Providers Name Role Phone Unknown, Provider Primary Care Provider Encounter Details Date Type Department Care Team Description 08/24/2021 Lab Requisition [facility] Outr Resulting Lab, Pathology & Laboratory Provider [facility] [address] [place] [phone] Social History Tobacco Use Types Packs/Day Years Used Date Never Assessed Sex Assigned at Date Recorded Not on file documented as of this encounter Plan of Treatment Not on filedocumented as of this encounter Procedures Procedure Name Priority Date/Time Associated Diagnosis Comme nts COVID-19 [facility] Today 08/23/2021 9:00 EDT LAB PCR COVID-19 TESTING Routine 08/23/2021 9:00 EDT Resu lts for this procedure are i n the results section. documented in this encounter Results COVID-19 TEST [facility] PCR (08/23/2021 9:00 EDT) Specimen Swab - Entire nasopharynx (body structur e) Performing Organization Address City/State/ZIP Code Phon e Number [facility] [address] [place] [address] SERVICES COVID-19 TESTING (08/23/2021 9:00 EDT) COVID-19 rt-PCR Negative Negative [facility] Result Comment: [facility] This test has not been FDA c leared or approved. This test has been authorized by FDA under an EUA for use by authorized laboratories. This test has been authorized only for detection of nucleic acid fro SERVICES m 2018-nCoV, not for any oth er viruses or pathogens. This test is only authorized for the duration of the declaration that circumstances exist justifying the authorization of emergency use of in vitro d iagnostic tests for detectio n and/or diagnosis of 2019-nCoV under section 564(b)(1) of Act, 21 U.S.C ?? 360bbb-3(b) (1), unless the authorization is terminated or revoked sooner. Negative results do not prec lude 2019-nCoV infection and should not be used as the sole basis for treatment or other patient management decisions. Negative results must be combined with clinical observa tions, patient history, and epidemiological informatio n. Testing was performed using the sekou SARS-CoV-2 assay ([employer] on the Sekou 6800 System Performing Lab Sekou 6800 [facility] Lab [facility] SERVICES Specimen Swab Performing Organization Address City/State/ZIP Code Phon e Number [facility] [address] [place] [address] SERVICES documented in this encounter Visit Diagnoses Not on filedocumented in this encounter Care Teams In Store Marketer Relationship Specialty Start Date End Date Unknown, Provider, PCP - General 10/15/15 documented as of this encounter
--- OUTSIDE RECORDS SUMMARY | 2022-06-08 00:05 | XMS_ITS | Encounter Summary ---
:1950 Author Organization [facility] [place] [address] Care Team Providers Name Role Phone Antonio Comer MD Primary Care Provider Encounter Details Date Type Department Care Team Description 05/22/2011 Abstract Ophthalmology at [facility] Mei Britton, [place] [phone] Social History Tobacco Use Types Packs/Day Years Used Date Never Assessed Sex Assigned at Date Recorded Not on file documented as of this encounter Plan of Treatment Not on filedocumented as of this encounter Visit Diagnoses Not on filedocumented in this encounter Care Teams Assistance Representative Relationship Specialty Start Date End Date Antonio Comer MD PCP - General 10/24/10 05/22/11 [address] [place] [address] documented as of this encounter
--- OUTSIDE RECORDS SUMMARY | 2022-06-08 00:05 | XMS_ITS | Encounter Summary ---
:1950 Author Organization [facility] Address [address] [place] [address] Care Team Providers Name Role Phone Unavailable Primary Care Provider Unavailable Encounter Details Date Type Department Care Team Description 02/02/2005 Results Only [facility] - Autumn Hamilton od, Mei Allen, INTERMODAL DISPATCHER conversion [address] [place] [phone] (Wo rk) Social History Tobacco Use Types Packs/Day Years Used Date Never Assessed Sex Assigned at Date Recorded Not on file documented as of this encounter Plan of Treatment Not on filedocumented as of this encounter Procedures Procedure Name Priority Date/Time Associated Diagnosis Comme [facility] CYTOPATHOLOGY Routine 02/02/2005 0:00 EST Results for this procedure are i n the results section . documented in this encounter Results CYTOPATHOLOGY (02/02/2005 0:00 EST) Pathology Report: CYTOPATHOLOGY REPORT [facility] Reports generated via electronic interface contain harley ginal data; however they are lacking the format of the original re port. Caution should be taken when reading/interpreting unfo rmatted reports. Name: ? RO BALL ? Accession #: ? [id number] : ? 1950 (Age: 54) ??F ?Collect Date: ? 03/2005 Location: ? [facility] ? Receive Date : ? 02/06/2005 Provider: ?MEI AVILES INTERMODAL DISPATCHER Copy to: ? Specimen/Source: ?ThinPrep Pap Test, Cervix/ Endocervix Last Menstrual Period: ? 2001 Other: ? Additional clinical information: 11/16/03 pap nl. HPVA - HPV testing requested if ASC-US on the current ThinPrep Pap test. ? SPECIMEN ADEQUACY ? Satisfactory for Evaluation - transformation zone component present GENERAL CATEGORIZATION ? Negative for Intraepithelial Lesion or Malignan cy ? Document reviewed and electronically signed by: ? LAUREL Voss(ASCP) ? Report Date: ??02/08/2005 11:29 End of Report Specimen Performing Organization Address City/State/ZIP Code Phon e Number [facility] [address] [place] [address] SERVICES [facility] [address] [place] [address] documented in this encounter Visit Diagnoses Not on filedocumented in this encounter
--- OUTSIDE RECORDS SUMMARY | 2022-06-08 00:05 | XMS_ITS | Encounter Summary ---
:1950 Author Organization [facility] [place] [address] Care Team Providers Name Role Phone Lorne Sorenson MD Primary Care Provider Reason for Visit Reason Comments Follow-up pt for follow up of fbc ou. was improving but has seemed to get worse again last couple . only gabe ngemade by pt was stopped taking flaxseed, omg3 Encounter Details Date Type Department Care Team Description 06/13/2011 Follow-Up Ophthalmology at [facility] Jose Bourgeois, Conjunctivitis, chronic, fol licular; [facility] [place] [phone] [facility] [phone] DR OPHTHALMOLOGY DEPT. [place], [place] [address] Social History Tobacco Use Types [...] on file documented as of this encounter Patient Instructions Patient InstructionsJose Michelle MD - 06/13/2011 11:59 AM EDT For medications not prescribed by the Ophthalmology (Eye) Clinic, please follow up with your PCP (primary care provider) for instructions. documented in this encounter Progress Notes Jose Michelle MD - 06/13/2011 11:59 AM EDT Iris Ball is a 61 y.o.. Encounter Diagnoses Name Primary? Conjunctivitis, chronic, follicular ??? Cataract Symptoms resolved and findings, follicles, are less prominent. Culture only grew Coag neg staph. Plan: No treatment - Follow up Dr. Davis or me as needed - Findings and concerns discussed with Iris and she expresses understanding. -Upon Return IOP documented in this encounter Nursing Notes 06/13/2011 11:15 AM EDT >> JOES MICHELLE MD SatJun 13, 2011 12:00 PM Doing well. Cultures only coag neg staph. Doing well without any therapy. >> LUPIS GASTELUM SatJun 13, 2011 11:31 AM Description:Patient presents with: Follow-up - pt for follow up of fbc ou. was improving but has seemed to get worse again last couple. only changemade by pt was stopped taking flaxseed, omg3 Location: both eye Duration: ongoing Condition:got better than worse again Pain:none Associated Symptoms: has had lid stickiness last several days. documented in this encounter Plan of Treatment Not on filedocumented as of this encounter Visit Diagnoses Diagnosis Conjunctivitis, chronic, follicular Chronic follicular conjunctivitis Cataract Unspecified cataract documented in this encounter Care Teams Technical Service Representative Relationship Specialty Start Date End Date Lorne Sorenson MD PCP - General 05/23/11 [address] [place] [address] documented as of this encounter
--- OUTSIDE RECORDS SUMMARY | 2022-06-08 00:05 | XMS_ITS | Encounter Summary ---
:1950 Author Organization [facility] Address [address] [place] [address] Care Team Providers Name Role Phone Unavailable Primary Care Provider Unavailable Encounter Details Date Type Department Care Team Description 06/11/2000 Results Only [facility] - Autumn Hamilton od, Mei Allen, HOSE HANDLER conversion [address] [place] [phone] (Wo rk) Social History Tobacco Use Types Packs/Day Years Used Date Never Assessed Sex Assigned at Date Recorded Not on file documented as of this encounter Plan of Treatment Not on filedocumented as of this encounter Procedures Procedure Name Priority Date/Time Associated Diagnosis Comme nts CYTOPATHOLOGY Routine 06/11/2000 0:00 EDT Results for this procedure are i n the results section . documented in this encounter Results CYTOPATHOLOGY (06/11/2000 0:00 EDT) Pathology Report: CYTOPATHOLOGY REPORT [facility] Reports generated via electronic interface contain harley ginal data; however they are lacking the format of the original re port. Caution should be taken when reading/interpreting unfo rmatted reports. Name: ? RO BALL ? Accession #: ? [id number] : ? 1950 (Age: 50) ??F ?Collect Date: ? 06/01 Location: ? [facility] ? Receive Date : ? 06/12/2000 Provider: ?MEI AVILES HOSE HANDLER Copy to: ? Specimen/Source: ?Conventional Pap Test, Cer vix/Endocervix Last Menstrual Period: ? 05/10/00 ? SPECIMEN ADEQUACY ? Satisfactory for evaluation. GENERAL CATEGORIZATION ? Within Normal Limits ? Document reviewed and electronically signed by: ? Veronica Trevizo [facility](ASCP) ? Report Date: ??06/13/2000 08:21 End of Report Specimen Performing Organization Address City/State/ZIP Code Phon e Number [facility] [address] [place] [address] SERVICES [facility] [address] [place] [address] documented in this encounter Visit Diagnoses Not on filedocumented in this encounter
--- OUTSIDE RECORDS SUMMARY | 2022-06-08 00:05 | XMS_ITS | Encounter Summary ---
:1950 Author Organization [facility] Address [address] [place] [address] Care Team Providers Name Role Phone Unavailable Primary Care Provider Unavailable Encounter Details Date Type Department Care Team Description 07/02/2008 Before PRISM [facility] - Mei Del Castillo, Converted Visit Maple conversion WAGON DRIVER SALESPERSON (Maple) [address] [place] [id number] [place] [phone] (Wo rk) Social History Tobacco Use Types Packs/Day Years Used Date Never Assessed Sex Assigned at Date Recorded Not on file documented as of this encounter Plan of Treatment Not on filedocumented as of this encounter Procedures Procedure Name Priority Date/Time Associated Comments Diagnosis HPV DETECTION, HIGH Routine 07/02/2008 11:00 Resu lts for this RISK TYPES EDT procedure are i n the results section. CYTOPATHOLOGY Routine 07/02/2008 0:00 Results for this EDT procedure are i n the results section. documented in this encounter Results HUMAN PAPILLOMA VIRUS DNA TEST (07/02/2008 11:00 EDT) Specimen Description Cervix, ThinPrep [facility] vial Result Negative for HPV [facility] types 16, 18, 31, 33, 35, 39, 45, 51, 52, 56, 58, 59, and 68. Report Status Final [facility] [id number] Specimen Performing Organization Address City/State/ZIP Code Phon e Number [facility] [address] [place] [address] SERVICES [facility] [address] [place] [address] CYTOPATHOLOGY (07/02/2008 0:00 EDT) Pathology Report: CYTOPATHOLOGY REPORT ? [facility] Reports generated via electr onic interface contain original data; ? however they are lacking the format of the original report. ? Caution should be taken when reading/interpreting unformatted reports. ? Name: ? RO BALL ? Accession #: ? [id number] ? : ? 1950 (Age: 58) ??F ?Collect Date: ? 07/02/2008 ? Location: ? [facility] ? Receive Date: ? 07/05/2008 ? Provider: ?MEI HAYG OOD WAGON DRIVER SALESPERSON ? Copy to: ? Specimen/Source: ? ThinPrep Pap Test, Cervix/Endocervix, processed on [employer] ThinPrep Imaging System, wit h manual evaluation ? Last Menstrual Period: ? 2002 ? Other: ? HPVDX - HPV testing requeste d regardless of diagnosis on current ThinPrep Pap ?? test. ? SPECIMEN ADEQUACY ? Unsatisfactory for Ev aluation ? - obscuring contamination, p ossibly lubricant, which precludes interpretation of 75% or more of the epithelia l cells ? GENERAL CATEGORIZATION ? Specimen processed an d examined, but unsatisfactory for evaluation of ? epithelial abnormality. ? Recommend repeat Pap test or further follow up, as clinically indicated. ? Document reviewed and electr onically signed by: ? Radha Adamsonlogg, CT(ASCP) ? Report Date: ??08/07/ 2008 12:46 ? End of Report ? Specimen Performing Organization Address City/State/ZIP Code Phon e Number [facility] [address] [place] [address] SERVICES [facility] [address] [place] [address] documented in this encounter Visit Diagnoses Not on filedocumented in this encounter
--- OUTSIDE RECORDS SUMMARY | 2022-06-08 00:05 | XMS_ITS | Encounter Summary ---
:1950 Author Organization [facility] Address [address] [place] [address] Care Team Providers Name Role Phone Unavailable Primary Care Provider Unavailable Encounter Details Date Type Department Care Team Description 07/31/2002 Results Only [facility] - Autumn Hamilton od, Mei Allen, SOCIAL SCIENCE TEACHER conversion [address] [place] [phone] (Wo rk) Social History Tobacco Use Types Packs/Day Years Used Date Never Assessed Sex Assigned at Date Recorded Not on file documented as of this encounter Plan of Treatment Not on filedocumented as of this encounter Procedures Procedure Name Priority Date/Time Associated Diagnosis Comme nts CYTOPATHOLOGY Routine 07/31/2002 0:00 EDT Results for this procedure are i n the results section . documented in this encounter Results CYTOPATHOLOGY (07/31/2002 0:00 EDT) Pathology Report: CYTOPATHOLOGY REPORT [facility] Reports generated via electronic interface contain harley ginal data; however they are lacking the format of the original re port. Caution should be taken when reading/interpreting unfo rmatted reports. Name: ? RO BALL ? Accession #: ? [id number] : ? 1950 (Age: 52) ??F ?Collect Date: ? 07/04 Location: ? [facility] ? Receive Date : ? 08/05/2002 Provider: ?MEI AVILES SOCIAL SCIENCE TEACHER Copy to: ? Specimen/Source: ?Conventional Pap Test, Cer vix/Endocervix Last Menstrual Period: ? 07/22/02 ? SPECIMEN ADEQUACY ? Satisfactory for Evaluation - transformation zone component present - obscuring blood GENERAL CATEGORIZATION ? Negative for Intraepithelial Lesion or Malignan cy ? Document reviewed and electronically signed by: ? Mei Sage, SCT(ASCP) ? Report Date: ??08/05/2002 13:56 End of Report Specimen Performing Organization Address City/State/ZIP Code Phon e Number [facility] [address] [place] [address] SERVICES [facility] [address] [place] [address] documented in this encounter Visit Diagnoses Not on filedocumented in this encounter
--- OUTSIDE RECORDS SUMMARY | 2022-06-08 00:05 | XMS_ITS | Encounter Summary ---
:1950 Author Organization [facility] Address [address] [place] [address] Care Team Providers Name Role Phone Unavailable Primary Care Provider Unavailable Encounter Details Date Type Department Care Team Description 12/01/2013 Results Only [facility] Joel Del Castillo, MEAT CLERK Laboratory Services - [address] [facility] [address] Quintana [address] [address] [place] [address] [phone] Social History Tobacco Use Types Packs/Day Years Used Date Never Assessed Sex Assigned at Date Recorded Not on file documented as of this encounter Plan of Treatment Not on filedocumented as of this encounter Procedures Procedure Name Priority Date/Time Associated Diagnosis Comme nts PAP TEST- RESULT Routine 12/01/2013 0:00 EST Resu lts for this ONLY procedure are i n the results section. documented in this encounter Results PAP TEST- RESULT ONLY (12/01/2013 0:00 EST) Pathology Report: CYTOPATHOLOGY REPORT [facility] Reports generated via electronic interface contain harley ginal data; however they are lacking the format of the original re port. Caution should be taken when reading/interpreting unfo rmatted reports. Name: ? RO BALL ? Accession #: ? [id number] : ? 1950 (Age: 63) ??F ?Collect Date: ? 11/03 Location: ? [facility] ? Receive Date : ? 12/03/2013 Provider: ?ROOSEVELT DEL CASTILLO MEAT CLERK Copy to: ? Specimen/Source: ? Pap Test, Cervix/Endocervix, ThinPrep Imaging System with manual evaluation Last Menstrual Period: ? 2001 Other: ? Additional clinical information: Atrophic vagina Additional clinical information: Stenotic os ? SPECIMEN ADEQUACY ? Satisfactory for Evaluation - assessment of transformation zone component not appl icable ( e.g. atrophy, vaginal sample, hysterectomy) GENERAL CATEGORIZATION ? Negative for Intraepithelial Lesion or Malignan cy ? Document reviewed and electronically signed by: ? ISSA Lord(ASCP) ? Report Date: ??12/07/2013 09:02 End of Report Specimen Performing Organization Address City/State/ZIP Code Phon e Number [facility] [address] [place] [address] SERVICES [facility] [address] [place] [address] documented in this encounter Visit Diagnoses Not on filedocumented in this encounter
--- NOTE | 2022-06-08 14:21 | DI.DEXA_ITS ---
Exam(s) XR DEXA BONE DENSITY W/WO ORI EXAM: XR DEXA BONE DENSITY W/WO ORI CLINICAL HISTORY: ASYMPTOMATIC POSTMENOPAUSAL STATUS, Z78.0 SCREENING TECHNIQUE: HoloZaggora Horizon C densitometer analysis of left hip, lumbar spine and left forearm. COMPARISON: No exams were available for comparison FINDINGS: Lateral view of the thoracic and lumbar spine shows no evidence of compression fractures. Bone mineral density measurements of the lumbar spine correspond to a total T-score of -1.2, consist ent with osteopenia. Bone mineral density measurements of the left hip correspond to a total T-score of -1.5. The femora l neck T-score is -1.5, in the osteopenic range.. The left forearm bone mineral density measurements correspond to a T-score of the distal 3rd of -2.5 , consistent with osteoporosis.. IMPRESSION: Osteopenia of the lumbar spine and left hip. Osteoporosis of the left forearm.
== END ==
PROVIDERS: PCP Physician Assistant; Visit Provider Physician Assistant
DX: Z12.31 Encounter for screening mammogram for malignant neoplasm of breast (principal); Z13.820 Encounter for screening for osteoporosis; Z78.0 Asymptomatic menopausal state; M85.89 Other specified disorders of bone density and structure, multiple sites; M81.0 Age-related osteoporosis without current pathological fracture; R92.8 Other abnormal and inconclusive findings on diagnostic imaging of breast
CPT/HCPCS: 77063; 77067; 77080

== ENCOUNTER 2023-04-03 14:45 | Outpatient (REF) | payer MEDICARE, BC, SELFPAY ==
[2023-04-03 20:58] LABS: ALT 19 U/L (14-59); AST 20 U/L (15-37); Albumin 3.9 g/dL (3.4-5.0); Alkaline Phosphatase 53 U/L (46-116); Anion Gap 6.2 mmol/L (3-11); BUN 13 mg/dL (7-18); Bilirubin, Total 0.5 mg/dL (0.2-1.0); CO2 28.8 mmol/L (21.0-32.0); CREATININE 0.9 mg/dL (0.55-1.02); Calcium 9.6 mg/dL (8.5-10.1); Chloride 107 mmol/L (98-107); Estimated GFR 67.92 (mL/min/1.73m2); Glucose 99 mg/dL (74-106); Potassium 4.6 mmol/L (3.5-5.1); Sodium 142 mmol/L (136-145); Total Protein 7.4 g/dL (6.4-8.2)
== END 2023-04-03 14:46 | disposition home or self-care (01) ==
LOC: NCHCN 14:45
PROVIDERS: PCP Physician Assistant; Visit Provider Physician Assistant
DX: I10 Essential (primary) hypertension (principal)
CPT/HCPCS: 80053

== ENCOUNTER 2023-12-24 16:09 | Outpatient (REF) | payer MEDICARE, BC, SELFPAY ==
--- OUTSIDE RECORDS SUMMARY | 2023-12-24 16:10 | XMS_ITS | Continuity of Care Document ---
Author Name Unknown Organization [facility] Address [address] [place] [address] Care Team Providers Care Academic Advisement Director Name Role Phone SHARRI HERNANDES PA-C Primary Care Physicia n Encounter [facility] NBR [id number] Date(s): 06/05/23 - 06/05/23 [facility] [address] [place], [place] [address] Encounter Diagnosis Other deformities of toe(s) (acquired), right foot(Final) - Primary osteoarthritis, right ankle and foot(Final) - Discharge Disposition: Home or Self Care Attending Physician: GAIL WARNER DPM Admitting Physician: GAIL WARNER DPM Referring Physician: SHARRI HERNANDES PA-C Results Radiology Reports * Exam Date Time Procedure Performing Provider Status 06/05/23 12:33 PM XR Foot Complete 3+ Views Right Irina Leal (Verified) Notes: (XR Foot Complete 3+ Views Right) Reason For Exam: OA foot XR Foot Complete 3+ Views Right PROCEDURE INFORMATION: Exam: XR Right Foot Exam date and time: 06/05/2023 12:49 PM Age: 73 years old Clinical indication: Other deformities of toe(s) (acquired), right foot; Other deformities of toe(s) (acquired), right foot; Additional info: Oa foot TECHNIQUE: Imaging protocol: Radiologic exam of the right foot. Views: 3 or more views. COMPARISON: No relevant prior studies available. FINDINGS: Bones/joints: Hindfoot-midfoot and midfoot-forefoot articulations normal. Metatarsals and phalanges without an acute process. Subtalar and tibiotalar joint normal. Moderate degenerative changes at the first metatarsal phalangeal joint. Mild soft tissue swelling about the joint space medially. Soft tissues: See Bones/joints finding. IMPRESSION: Moderate degenerative changes at the first metatarsal phalangeal joint. Mild soft tissue swelling about the joint space medially. THIS DOCUMENT HAS BEEN ELECTRONICALLY SIGNED BY CRISTOPHER CORRIGAN MD on 06/05/2023 12:57 PM Final Signed by: Cristopher Corrigan MD Signed (Electronic Signature): 06/05/2023 12:57 pm Patient Care team information Care Team Personnel Name: SHARRI HERNANDES PA-C Position: No Access Member Role: Primary Care Physician Address: Address: [address] [place] [address]
--- OUTSIDE RECORDS SUMMARY | 2023-12-24 16:10 | XMS_ITS | Continuity of Care Document ---
Author Name Unknown Address [address] [place] [address] Phone [facility] Address [address] [place] [address] Phone Care Team Providers Care Textile Conversion Manager Name Role Phone PAULINA Angulo Primary Care Provider [phone] ANMOL Uribe Attending Provider Unavailable CONNIE Michelle Attending Provider Chief Complaint and Reason for Visit Chief Complaint Amb Documentation foot pain unspecified foot Reason for Visit Acquired hallux limi tus of right foot Osteoarthritis of right foot Allergies, Adverse Reactions, Alerts Allergen Type Severity Reaction Last Updated Verified Status Penicillins Allergy Moderate Unknown June 05, 2023 11:09am Yes Active lisinopril Allergy Mild Unknown June 05, 2023 11:09am Yes Active Social History Smoking Status Status Start Date End Date Date of Observa tion Unknown if ever smoked April 012022 3:44pm Additional Data Assigned Sex Female Problems Active Problems Medical Problem Onset Date Status Foot pain Active Hoarseness, chronic Active Palpitations Active Shingles Active Osteoporosis Active Acquired hallux limitus of right foot Active Hyperlipidemia Active Impacted cerumen, bilateral Acti ve Hypertension Active Tinnitus Active Osteoarthritis of right foot Act carlos Inactive/Resolved Problems Medical Problem Onset Date Status Preventative health care Resolve d H/O screening mammography Resolv ed Ex-smoker for more than 1 year R esolved Medications Medication Status Dose Units Route Directions Qty Days St art Date End Date Instructions Vit C-E-Zinc Xp-Biin-Bno-Zeax (Icaps Areds2) 250 mg-200 unit -12.5 mg-1 mg capsule Active CAP PO April 16, 2023 12:00a m Cholecalciferol (Vitamin D3) Active 1000 UNIT PO daily April 16, 2023 12:00a m Alendronate (Fosamax) 70 mg tablet Active 70 MG PO Every Week April 16, 2023 12:00a m take 1 tablet by mouth once a week in the morning with glass of water. do not eat/drink/lay ariadna for 30 minutes Losartan Active 25 MG PO daily April 16, 2023 12:00a m Calcium Carbonate (Calcium 500) 500 mg calcium (1,250 mg) tablet,chewable Active 500 MG PO daily April 17, 2023 12:00a m Vital Signs Vital Reading Result Reference Range Collection Date/Time Height 62 [in_i] June 05, 2023 11:13am Weight 162.00 [lb_av] June 05 11:13am Body Temperature 98 [degF] 97.6-99.6 June 05, 2 023 11:13am Heart Rate 57 /min 60-100 June 05, 2023 11:13am Respiratory rate 16 /min 12-18 June 05, 2 023 11:13am Oxygen saturation by Pulse oximetry 97 % 92-100 June 05, 2023 11:13 am BP Systolic 149 mm[Hg] 90-130 June 05, 2023 11:13am BP Diastolic 84 mm[Hg] 70-80 June 05, 2023 11:13am BMI (Body Mass Index) 29.6 kg/m2 June 052022 11:13am Insurance Providers Guarantor RO GALINDO Address [address] [place] [address] Contact Info. Home Phone: Payer Policy Id Coverage Id Subscriber's Name Subscriber Id Effective Date Expiration Date [facility] [id number] RO GALINDO [id number] MEDICARE [id number] RO GALINDO [id number] Encounters Encounter Location(s) Arrival/Admit Date Discharge/Depart Date Provider(s) Non-patient / Non-visit [facility] Nonvisit April 16, 2023 8:54am null Departed Physician/Prov ider Office Visit [facility] Podiatry [facility] June 05, 2023 11:06am June 05, 2023 11:36am Karen Michelle DPM Recent Diagnosis Onset Date Acquired hallux limitus of right foot Osteoarthritis of right foot Assessments Diagnosis Onset Date Resolution Status Acquired hallux limitus of right foot noneactive Osteoarthritis of right foot noneactive Plan of Treatment Future Tests Future scheduled test information is unavailable Pending Tests Test Name Ordered Date Scheduled Date Foot Right Complete 3 Views June 05, 2023 11:33 am Future Visits Future appointment information is unavailable Referrals to Other Providers Referral information is unavailable Future Procedures Future procedure information is unavailable Future Medications Future medication information is unavailable Patient Instructions Patient instructions are unavailable
[2023-12-24 19:43] LABS: ALT 20 U/L (14-59); AST 20 U/L (15-37); Albumin 3.7 g/dL (3.4-5.0); Alkaline Phosphatase 49 U/L (46-116); Anion Gap 5.6 mmol/L (3-11); BUN 16 mg/dL (7-18); Bilirubin, Total 0.5 mg/dL (0.2-1.0); CO2 28.4 mmol/L (21.0-32.0); CREATININE 0.8 mg/dL (0.55-1.02); Calcium 8.6 mg/dL (8.5-10.1); Chloride 105 mmol/L (98-107); Estimated GFR 78.24 (mL/min/1.73m2); Glucose 103 mg/dL (74-106); LDL CHOLESTEROL 109 mg/dL (<100); Potassium 3.8 mmol/L (3.5-5.1); Sodium 139 mmol/L (136-145); Total Protein 6.8 g/dL (6.4-8.2)
[2023-12-24 20:04] LABS: Vitamin D 25 Total 40.5 ng/mL (30-100)
[2023-12-24 20:13] LABS: Hemoglobin A1C 4.9 % (<5.7)
== END 2023-12-24 16:10 | disposition home or self-care (01) ==
LOC: NCHCN 16:09
PROVIDERS: PCP Physician Assistant; Visit Provider Physician Assistant
DX: I10 Essential (primary) hypertension (principal); E78.5 Hyperlipidemia, unspecified; R79.89 Other specified abnormal findings of blood chemistry; M81.0 Age-related osteoporosis without current pathological fracture
CPT/HCPCS: 80053; 82306; 83721; 83036

== ENCOUNTER 2024-07-13 02:06 | Outpatient (CLI) | payer MEDICARE, BC, SELFPAY ==
--- NOTE | 2024-07-13 | DI.MAMMO_ITS ---
Exam(s) MAMMO SCREENING EXAM: MAMMO SCREENING CLINICAL HISTORY: SCREENING, Z12.31 TECHNIQUE: Bilateral full field digital CC and MLO mammographic images were obtained with 3D tomosyn thesis and utilizing computer aided detection (CAD). COMPARISON: Available for comparison. FINDINGS: Masses/Architectural Distortion: Stable well-circumscribed nodule in the upper outer quadrant of the right breast which is likely a lymph node. No suspicious nodules are seen. No areas of architectura l distortion are present. Microcalcifications: No suspicious pleomorphic-type are seen. Skin Thickening/Nipple Retraction: None. IMPRESSION: 1. No significant interval change with no specific features of malignancy noted. 2. Unless there is more urgent need, screening mammography is recommended, as per [employer] guidelines. BI-RADS Category 1 - Negative Breast Density - Category B - Scattered areas of fibroglandular density Breast density category C or D implies that the patient has dense breast tissue. Dense breast tissue is very common and is not abnormal but dense breast tissue can make it harder to find cancer on a ma mmogram. Also, dense breast tissue may increase their breast cancer risk. This information about the result of the mammogram report was provided to the patient to raise their awareness. Use this report when you speak with the patient about their risks for breast cancer, which includes their family hist ory. At that time, you may recommend for more screening tests (Ultrasound or MRI) as they might be us eful based on their risk. A negative radiographic report should not delay biopsy if a dominant or clinically suspicious mass is present. Up to ten percent of cancers are not identified on mammography. A negative report may reinforce clinical impression. Adenosis and dense breasts may obscure an underlying neoplasm. False positive reports average 6 to 10%. Patient will receive a letter notifying them of these results.
--- NOTE | 2024-07-13 | DI.DEXA_ITS ---
Exam(s) XR DEXA BONE DENSITY W/WO ORI EXAM: XR DEXA BONE DENSITY W/WO ORI CLINICAL HISTORY: SENILE OSTEOPOROSIS, M81.0 TECHNIQUE: COMPARISON: CR XR DEXA BONE DENSITY W/WO ORI from 06/08/2022 FINDINGS: Lateral Spine Image: Unremarkable. No compression deformities identified. Left hip: Total T-Score: -1.0. This compares to -1.5 on the prior examination. Total Z-Score: 0.7 T- and Z-scores: No evidence of osteoporosis. Lumbar Spine: Total T-Score: -0.9. This compares to -1.2 on the prior examination. Total Z-Score: 1.4 T- and Z-scores: 5 no evidence of osteoporosis. IMPRESSION: No evidence of osteoporosis.
--- OUTSIDE RECORDS SUMMARY | 2024-07-13 02:20 | XMS_ITS | Encounter Summary ---
Author Organization [facility] Address [address] [place] [address] Care Team Providers Care Stitch Bonding Machine Drawer In Name Role Phone Unavailable Primary Care Provider Unavailabl e Encounter Details Date Type Department Care Team (Late st Contact Info) Description 02/02/2005 Results Only [facility] - Maple conversion [address] [place] [address] Mei Del Castillo[address] [address] Social History Tobacco Use Types Packs/Day Years Used Date Smoking Tobacco: Never Assessed Sex and Gender Information Value Date Recorded Sex Assigned at Not on file Gender Identity Not on file Sexual Orientation Not on file documented as of this encounter Plan of Treatment Not on file documented as of this encounter Procedures Procedure Name Priority Date/Time Associated Diagnosis Comments CYTOPATHOLOGY Routine 02/02/2005 0:00 EST documented in this encounter Results * CYTOPATHOLOGY (02/02/2005 0:00 EST) Pathology Report: CYTOPATHOLOGY REPORT Reports generated via electronic interface contain original data; however they are lacking the format of the original report. Caution should be taken when reading/interpreti ng unformatted reports. Name: ? RO GALINDO ? Accession #: ? [id number] : ? 1950 (Age: 54) ??F ?Collect Date: ? 02/02/2005 Location: ? [facility] ? Receive Date: ? 02/06/2005 Provider: ?MEI DEL CASTILLO TUB MENDER Copy to: ? Specimen/Source: ?ThinPrep Pap Test, Cervix/Endocervix Last Menstrual Period: ? 2001 Other: ? Additional clinical information: 11/16/03 pap nl. HPVA - HPV testing requested if ASC-US on the current ThinPrep Pap test. ? SPECIMEN ADEQUACY ? Satisfactory for Evaluation - transformation zone component present GENERAL CATEGORIZATION ? Negative for Intraepithelial Lesion or Malignancy ? Document reviewed and electronically signed by: ? LAUREL Voss(ASCP) ? Report Date: ??02/08/2005 11:29 End of Report [facility] 02/02/2005 02/06/2005 Mei Del Castillo TUB MENDER PATHOLOGY ORDERABLES [facility] [address] [place] [address] documented in this encounter Visit Diagnoses Not on filedocumented in this encounter
--- OUTSIDE RECORDS SUMMARY | 2024-07-13 02:20 | XMS_ITS | Encounter Summary ---
Author Organization [facility] Address [address] [place] [address] Care Team Providers Care Hospice Clinical Manager Name Role Phone Unavailable Primary Care Provider Unavailabl e Encounter Details Date Type Department Care Team (Late st Contact Info) Description 05/22/2007 Results Only [facility] - Maple conversion [address] [place] [address] Mei Del [address] [place] [phone] Social History Tobacco Use Types Packs/Day Years Used Date Smoking Tobacco: Never Assessed Sex and Gender Information Value Date Recorded Sex Assigned at Not on file Gender Identity Not on file Sexual Orientation Not on file documented as of this encounter Plan of Treatment Not on file documented as of this encounter Procedures Procedure Name Priority Date/Time Associated Diagnosis Comments CYTOPATHOLOGY Routine 05/22/2007 0:00 EDT documented in this encounter Results * CYTOPATHOLOGY (05/22/2007 0:00 EDT) Pathology Report: CYTOPATHOLOGY REPORT Reports generated via electronic interface contain original data; however they are lacking the format of the original report. Caution should be taken when reading/interpreti ng unformatted reports. Name: ? RO GALINDO ? Accession #: ? [id number] : ? 1950 (Age: 57) ??F ?Collect Date: ? 05/22/2007 Location: ? [facility] ? Receive Date: ? 05/23/2007 Provider: ?MEI DEL CASTILLO CNC MAINTENANCE MECHANIC Copy to: ? Specimen/Source: ?ThinPrep Pap Test, Cervix/Endocervix, processed on [email or web address] ThinPrep Imaging System, with manual evaluation Last Menstrual Period: ? 2001 Other: ? HPVA - HPV testing requested if ASC-US on the current ThinPrep Pap test. ? SPECIMEN ADEQUACY ? Satisfactory for Evaluation - assessment of transformation zone component not applicable ( e.g. atrophy, vaginal sample, hysterectomy) GENERAL CATEGORIZATION ? Negative for Intraepithelial Lesion or Malignancy ? Document reviewed and electronically signed by: ? Mei Sage, SCT(ASCP) ? Report Date: ??05/28/2007 14:26 End of Report [facility] 05/22/2007 05/23/2007 Mei Del Castillo CNC MAINTENANCE MECHANIC PATHOLOGY ORDERABLES [facility] [address] [place] [address] documented in this encounter Visit Diagnoses Not on filedocumented in this encounter
--- OUTSIDE RECORDS SUMMARY | 2024-07-13 02:20 | XMS_ITS | Encounter Summary ---
Author Organization [facility] Address [address] [place] [address] Care Team Providers Care Funeral Greeter Name Role Phone Unknown, Provider Primary Care Provider Encounter Details Date Type Department Care Team (Late st Contact Info) Description 08/24/2021 Lab Requisition [facility] Pathology & Laboratory Medicine - [facility] [address] [place], [place] [address] Outr Resulting Lab, Provider Social History Tobacco Use Types Packs/Day Years Used Date Smoking Tobacco: Never Assessed Sex and Gender Information Value Date Recorded Sex Assigned at Not on file Gender Identity Not on file Sexual Orientation Not on file documented as of this encounter Plan of Treatment Not on file documented as of this encounter Procedures Procedure Name Priority Date/Time Associated Diagnosis Comments ZZCOVID-19 TEST [facility] PCR Today 08/23/2021 9:00 EDT COVID-19 TESTING Routine 08/23/2021 9:00 EDT documented in this encounter Results * COVID-19 TEST [facility] PCR (08/23/2021 9:00 EDT) Swab ENTIRE NASOPHARYNX / Unknown 08/23/2021 9:00 EDT 08/24/2021 15:39 EDT Provider Outr Resulting Lab MICROBIOLOGY - GENERAL ORDERABLES [facility] [address] [place] [address] * COVID-19 TESTING (08/23/2021 9:00 EDT) COVID-19 rt-PCR Result Negative Negative 08/25/2021 10:47 EDT [facility] Comment: This test has not been FDA cleared or approved. This test has been authorized by FDA under an EUA for use by authorized laboratories. This test has been authorized only for detection of nucleic acid from 2019-nCoV, not for any other viruses or pathogens. This test is only authorized for the duration of the declaration that circumstances exist justifying the authorization of emergency use of in vitro diagnostic tests for detection and/or diagnosis of 2019-nCoV under section 564(b)(1) of Act, 21 U.S.C ?? 360bbb-3(b) (1), unless the authorization is terminated or revoked sooner. Negative results do not preclude 2019-nCoV infection and should not be used as the sole basis for treatment or other patient management decisions. Negative results must be combined with clinical observations, patient history, and epidemiological information. Testing was performed using the dev SARS-CoV-2 assay ([employer] on the Dev 6800 System Performing Lab Dev 6800 [facility] 08/25/2021 10:47 EDT [facility] Swab 08/23/2021 9:00 EDT 08/24/2021 15:39 EDT Provider Outr Resulting Lab MICROBIOLOGY - GENERAL ORDERABLES [facility] [address] [place] [address] documented in this encounter Visit Diagnoses Not on filedocumented in this encounter Care Teams Funeral Greeter Relationship Specialty Start Date End Date Unknown, Provider, PCP - General 10/15/15 documented as of this encounter
--- OUTSIDE RECORDS SUMMARY | 2024-07-13 02:20 | XMS_ITS | Referral Summary ---
Author Organization [facility] Address [address] [place] [address] Care Team Providers Care Anvil Worker Name Role Phone Unknown, Provider Primary Care Provider [phone] Social History Tobacco Use Types Packs/Day Years Used Date Smoking Tobacco: Never Assessed Sex and Gender Information Value Date Recorded Sex Assigned at Not on file Gender Identity Not on file Sexual Orientation Not on file Plan of Treatment Not on file Care Teams Anvil Worker Relationship Specialty Start Date End Date Unknown, ProviderMD PCP - General 10/15/15
--- OUTSIDE RECORDS SUMMARY | 2024-07-13 02:20 | XMS_ITS | Encounter Summary ---
Author Organization [facility] Address [address] [place] [address] Care Team Providers Care Substitute Bus Driver Name Role Phone Unavailable Primary Care Provider Reid e Encounter Details Date Type Department Care Team (Late st Contact Info) Description 07/02/2008 Before PRISM Converted Visit (Map[facility]) [facility] - Maple conversion [address] [place] [address] Mei Del Castillo, [address] [place] [phone] Social History Tobacco Use Types Packs/Day Years Used Date Smoking Tobacco: Never Assessed Sex and Gender Information Value Date Recorded Sex Assigned at Not on file Gender Identity Not on file Sexual Orientation Not on file documented as of this encounter Plan of Treatment Not on file documented as of this encounter Procedures Procedure Name Priority Date/Time Associated Diagnosis Comments HPV DETECTION, HIGH RISK TYPES Routine 07/02/2008 11:00 EDT CYTOPATHOLOGY Routine 07/02/2008 0:00 EDT documented in this encounter Results * HUMAN PAPILLOMA VIRUS DNA TEST (07/02/2008 11:00 EDT) Specimen Description Cervix, ThinPrep vial [facility] Result Negative for HPV types 16, 18, 31, 33, 35, 39, 45, 51, 52, 56, 58, 59, and 68. [facility] Report Status Final [id number] [facility] 07/02/2008 11:0 0 EDT 07/09/2008 14:45 EDT Mei Del Castillo [facility] MICROBIOLOGY - GENER AL ORDERABLES [facility] [address] [place] [address] * CYTOPATHOLOGY (07/02/2008 0:00 EDT) Pathology Report: CYTOPATHOLOGY REPORT ? Reports generated via electronic interface contain original data; ? however they are lacking the format of the original report. ? Caution should be taken when reading/interpreti ng unformatted reports. ? Name: ? RO BALL ? Accession #: ? [id number] ? : ? 1950 (Age: 58) ??F ?Collect Date: ? 07/02/2008 ? Location: ? [facility] ? Receive Date: ? 07/05/2008 ? Provider: ?MEI STEFAN CLOTH CUTTER ? Copy to: ? Specimen/Source: ?ThinPrep Pap Test, Cervix/Endocervix, processed on [employer] ThinPrep Imaging System, with manual evaluation ? Last Menstrual Period: ? 2002 ? Other: ? HPVDX - HPV testing requested regardless of diagnosis on current ThinPrep Pap ?? test. ? SPECIMEN ADEQUACY ? Unsatisfactory for Evaluation ? - obscuring contamination, possibly lubricant, which precludes interpretation of 75% or more of the epithelial cells ? GENERAL CATEGORIZATION ? Specimen processed and examined, but unsatisfactory for evaluation of ? epithelial abnormality. ? Recommend repeat Pap test or further follow up, as clinically indicated. ? Document reviewed and electronically signed by: ? Radha Martig, CT(ASCP) ? Report Date: ??07/08/2008 12:46 ? End of Report ? [facility] 07/02/2008 07/05/2008 Mei Del Castillo CLOTH CUTTER PATHOLOGY ORDERABLES [facility] [address] [place] [address] documented in this encounter Visit Diagnoses Not on filedocumented in this encounter
--- OUTSIDE RECORDS SUMMARY | 2024-07-13 02:20 | XMS_ITS | Clinical Summary ---
Author Organization [facility] Address [facility] [place] [address] Care Team Providers Care Roller Varnisher Name Role Phone Lorne Sorenson MD Primary Care Provider Allergies Active Allergy Reactions Criticality Noted Date Comments Penicillins Hives Medications Medication Sig Dispensed Refills Start Date End Date Status CARBOXYMETHYLCELLULOSE SODIUM (THERA TEARS OPHT) Apply 1 drop to eye 3 times daily as needed. 05/23/2011 Active Active Problems Problem Noted Date Diagnosed Date Conjunctivitis, chronic, follicular 05/23/2011 Cataract 05/23/2011 Dysphonia 05/22/2011 Family History Medical History Relation Comments Cancer Brother Heart Disease Father Amblyopia Neg Hx Blindness Neg Hx Cataracts Neg Hx Diabetes Neg Hx Glaucoma Neg Hx Hypertension Neg Hx Macular Degeneration Neg Hx Retinal Detachment Neg Hx Strabismus Neg Hx Stroke Neg Hx Thyroid Disease Neg Hx Relation Status Comments Brother Father Social History Tobacco Use Types Packs/Day Years Used Date Smoking Tobacco: Former Cigarettes Q uit: 05/23/1979 Alcohol Use Standard Drinks/Week Comments Yes 0 (1 standard drink = 0.6 oz pur e alcohol) wine dinner Sex and Gender Information Value Date Recorded Sex Assigned at Not on file Gender Identity Not on file Sexual Orientation Not on file Plan of Treatment Health Maintenance Due Date Last Done Comments CT Colonography 1950 Colonoscopy 1950 Colorectal Cancer Screening 1950 FIT DNA 1950 FIT 1950 Sigmoidoscopy (10 year) with FIT yearly 1950 Sigmoidoscopy 1950 Hepatitis C Screening 1969 Tdap adult 1970 Tetanus vaccine 1970 Breast Cancer Share Decision Needed 1991 Breast Cancer screening 1991 Zoster vaccine (1 of 2) 2001 Advance Directive 2006 Bone Density Scan 02/26/2016 Pneumoccocal Vaccine: 65+ (1 of 1 - PCV) 02/26/2016 Covid-19 Vaccine (1 - 2022- season) 2023 Influenza (Flu) vaccine (1 o f 1 - Influenza standard series) 08/02/2024 Care Teams Roller Varnisher Relationship Specialty Start Date End Date Lorne Sorenson MD [address] [place] [address] PCP - General 05/23/11
--- OUTSIDE RECORDS SUMMARY | 2024-07-13 02:20 | XMS_ITS | Encounter Summary ---
Author Organization [facility] Address [address] [place] [address] Care Team Providers Care Kitchen Clerk Name Role Phone Unavailable Primary Care Provider Unavailabl e Encounter Details Date Type Department Care Team (Late st Contact Info) Description 07/31/2002 Results Only [facility] - Maple conversion [address] [place] [address] Mei Del Castillo[address] [place] [phone] Social History Tobacco Use Types Packs/Day Years Used Date Smoking Tobacco: Never Assessed Sex and Gender Information Value Date Recorded Sex Assigned at Not on file Gender Identity Not on file Sexual Orientation Not on file documented as of this encounter Plan of Treatment Not on file documented as of this encounter Procedures Procedure Name Priority Date/Time Associated Diagnosis Comments CYTOPATHOLOGY Routine 07/31/2002 0:00 EDT documented in this encounter Results * CYTOPATHOLOGY (07/31/2002 0:00 EDT) Pathology Report: CYTOPATHOLOGY REPORT Reports generated via electronic interface contain original data; however they are lacking the format of the original report. Caution should be taken when reading/interpreti ng unformatted reports. Name: ? RO GALINDO ? Accession #: ? [id number] : ? 1950 (Age: 52) ??F ?Collect Date: ? 07/31/2002 Location: ? [facility] ? Receive Date: ? 08/05/2002 Provider: ?MEI DEL CASTILLO CIRCUIT RIDER Copy to: ? Specimen/Source: ?Conventional Pap Test, Cervix/Endocervix Last Menstrual Period: ? 07/22/02 ? SPECIMEN ADEQUACY ? Satisfactory for Evaluation - transformation zone component present - obscuring blood GENERAL CATEGORIZATION ? Negative for Intraepithelial Lesion or Malignancy ? Document reviewed and electronically signed by: ? Mei Sage, SCT(ASCP) ? Report Date: ??08/05/2002 13:56 End of Report DINORA MCGREGOR 07/31/2002 08/05/2002 Mei Del Castillo CIRCUIT RIDER PATHOLOGY ORDERABLES DINORA MCGERGOR [address] [place] [address] documented in this encounter Visit Diagnoses Not on filedocumented in this encounter
--- OUTSIDE RECORDS SUMMARY | 2024-07-13 02:20 | XMS_ITS | Encounter Summary ---
Author Organization [facility] Address [address] [place] [address] Care Team Providers Care Assessment Coordinator Name Role Phone Unavailable Primary Care Provider Unavailabl e Encounter Details Date Type Department Care Team (Late st Contact Info) Description 12/01/2013 Results Only [facility] Laboratory Services - [facility] ([facility]) [address] [place], [place] [address] Mei Del Castillo, [facility] [address] [place] [place] [address] [place] [address] Social History Tobacco Use Types Packs/Day Years Used Date Smoking Tobacco: Never Assessed Sex and Gender Information Value Date Recorded Sex Assigned at Not on file Gender Identity Not on file Sexual Orientation Not on file documented as of this encounter Plan of Treatment Not on file documented as of this encounter Procedures Procedure Name Priority Date/Time Associated Diagnosis Comments PAP TEST- RESULT ONLY Routine 12/01/2013 0:00 EST documented in this encounter Results * PAP TEST- RESULT ONLY (12/01/2013 0:00 EST) Pathology Report: CYTOPATHOLOGY REPORT Reports generated via electronic interface contain original data; however they are lacking the format of the original report. Caution should be taken when reading/interpreti ng unformatted reports. Name: ? RO BALL ? Accession #: ? [id number] : ? 1950 (Age: 63) ??F ?Collect Date: ? 12/01/2013 Location: ? [facility] ? Receive Date: ? 12/03/2013 Provider: ?MEI DEL CASTILLO PAINTER FOREMAN Copy to: ? Specimen/Source: ?Pap Test, Cervix/Endocervix, ThinPrep Imaging System with manual [...] Report Date: ??12/07/2013 09:02 End of Report DINORA MCGREGOR 12/01/2013 12/03/2013 Mei Del Castillo PAINTER FOREMAN PATHOLOGY ORDERABLES DINORA MCGREGOR [address] [place] [address] documented in this encounter Visit Diagnoses Not on filedocumented in this encounter
--- OUTSIDE RECORDS SUMMARY | 2024-07-13 02:20 | XMS_ITS | Encounter Summary ---
Author Organization [facility] Address [address] [place] [address] Care Team Providers Care Senior Materials Analyst Name Role Phone Unavailable Primary Care Provider Unavailabl e Encounter Details Date Type Department Care Team (Late st Contact Info) Description 05/28/2006 Results Only [facility] - Maple conversion [address] [place] [address] [address] [place] [phone] Social History Tobacco Use Types Packs/Day Years Used Date Smoking Tobacco: Never Assessed Sex and Gender Information Value Date Recorded Sex Assigned at Not on file Gender Identity Not on file Sexual Orientation Not on file documented as of this encounter Plan of Treatment Not on file documented as of this encounter Procedures Procedure Name Priority Date/Time Associated Diagnosis Comments CYTOPATHOLOGY Routine 05/28/2006 0:00 EDT documented in this encounter Results * CYTOPATHOLOGY (05/28/2006 0:00 EDT) Pathology Report: CYTOPATHOLOGY REPORT Reports generated via electronic interface contain original data; however they are lacking the format of the original report. Caution should be taken when reading/interpreti ng unformatted reports. Name: ? RO GALINDO ? Accession #: ? [id number] : ? 1950 (Age: 56) ??F ?Collect Date: ? 05/28/2006 Location: ? [facility] ? Receive Date: ? 05/29/2006 Provider: ?MEI DEL CASTILLO SCALES INSPECTOR Copy to: ? Specimen/Source: ?ThinPrep Pap Test, Cervix/Endocervix, processed on [employer] ThinPrep Imaging System, with manual evaluation Last Menstrual Period: ? 2001 Other: ? HPVA - HPV testing requested if ASC-US on the current ThinPrep Pap test. ? SPECIMEN ADEQUACY ? Satisfactory for Evaluation - transformation zone component present GENERAL CATEGORIZATION ? Negative for Intraepithelial Lesion or Malignancy ? Document reviewed and electronically signed by: ? Jose Romano, ISSA(ASCP) ? Report Date: ??05/31/2006 10:23 End of Report DINORA MCGREGOR 05/28/2006 05/29/2006 Mei Del Castillo SCALES INSPECTOR PATHOLOGY ORDERABLES DINORA MCGREGOR [address] [place] [address] documented in this encounter Visit Diagnoses Not on filedocumented in this encounter
--- OUTSIDE RECORDS SUMMARY | 2024-07-13 02:20 | XMS_ITS | Continuity of Care Document ---
Author Organization [facility] Address [address] [place] [address] Care Team Providers Care Stock Handler Floorperson Name Role Phone SHARRI HERNANDES PA-C Primary Care Physicia n Encounter [facility] FIN NBR [id number] Date(s): 04/03/24 - 04/03/24 [facility] [address] [place] [address]- [place] Discharge Disposition: Home or Self Care Attending Physician: Elba Joiner Assessment and Plan Future Appointments Patient Care team information Care Team Personnel Name: SHARRI HERNANDES PA-C Position: No Access Member Role: Primary Care Physician Address: Address: [address] [place] [id number] Care Team Related Persons Name: JENNA GALINDO
--- OUTSIDE RECORDS SUMMARY | 2024-07-13 02:20 | XMS_ITS | Encounter Summary ---
Author Organization [facility] Address [address] [place] [address] Care Team Providers Care Volumetric Weigher Name Role Phone Unavailable Primary Care Provider Unavailabl e Encounter Details Date Type Department Care Team (Late st Contact Info) Description 06/11/2000 Results Only [facility] - Maple conversion [address] [place] [address] Mei Del Cast[address] [place] [phone] Social History Tobacco Use Types Packs/Day Years Used Date Smoking Tobacco: Never Assessed Sex and Gender Information Value Date Recorded Sex Assigned at Not on file Gender Identity Not on file Sexual Orientation Not on file documented as of this encounter Plan of Treatment Not on file documented as of this encounter Procedures Procedure Name Priority Date/Time Associated Diagnosis Comments CYTOPATHOLOGY Routine 06/11/2000 0:00 EDT documented in this encounter Results * CYTOPATHOLOGY (06/11/2000 0:00 EDT) Pathology Report: CYTOPATHOLOGY REPORT Reports generated via electronic interface contain original data; however they are lacking the format of the original report. Caution should be taken when reading/interpreti ng unformatted reports. Name: ? RO GALINDO ? Accession #: ? [id number] : ? 1950 (Age: 50) ??F ?Collect Date: ? 06/11/2000 Location: ? [facility] ? Receive Date: ? 06/12/2000 Provider: ?MEI DEL CASTILLO INSTRUCTOR ADJUNCT PHARMACY TECHNICIAN Copy to: ? Specimen/Source: ?Conventional Pap Test, Cervix/Endocervix Last Menstrual Period: ? 05/10/00 ? SPECIMEN ADEQUACY ? Satisfactory for evaluation. GENERAL CATEGORIZATION ? Within Normal Limits ? Document reviewed and electronically signed by: ? LAUREL Voss(ASCP) ? Report Date: ??06/13/2000 08:21 End of Report DINORA MCGREGOR 06/11/2000 06/12/2000 Mei Del Castillo INSTRUCTOR ADJUNCT PHARMACY TECHNICIAN PATHOLOGY ORDERABLES [facility] [address] [place] [address] documented in this encounter Visit Diagnoses Not on filedocumented in this encounter
--- OUTSIDE RECORDS SUMMARY | 2024-07-13 02:20 | XMS_ITS | Encounter Summary ---
Author Organization [facility] Address [facility] [place] [address] Care Team Providers Care Animal Shelter Clerk Name Role Phone Lorne Sorenson MD Primary Care Provider [phone] Reason for Visit * Reason Comments Follow-up pt for follow up of fbc ou. was improving but has seemed to get worse again last couple . only changemade by pt was stopped taking flaxseed, omg3 Encounter Details Date Type Department Care Team (Late st Contact Info) Description 06/13/2011 11:15 AM EDT Follow-[place] [address] Jose Michelle MD [facility] [place] [address] Conjunctivitis, chronic, follicular; Cataract Discharge Disposition: Home Social History Tobacco Use Types Packs/Day Years [...] documented as of this encounter Patient Instructions * Patient Instructions* Jose Michelle MD - 06/13/2011 11:59 AM EDT For medications not prescribed by the Ophthalmology (Eye) Clinic, please follow up with your PCP (primary care provider) for instructions. documented in this encounter Progress Notes * Jose Michelle MD - 06/13/2011 11:59 AM [...] IOP documented in this encounter Nursing Notes * 06/13/2011 11:15 AM EDT >> JOSE MICHELLE MD SatJun 13, 2011 12:00 PM [...] on file documented as of this encounter Visit Diagnoses Diagnosis Conjunctivitis, chronic, follicular Chronic follicular conjunctivitis Cataract Unspecified cataract documented in this encounter Care Teams Animal Shelter Clerk Relationship Specialty Start Date End Date Lorne Sorenson MD [address] [place] [address] PCP - General 05/23/11 documented as of this encounter
--- OUTSIDE RECORDS SUMMARY | 2024-07-13 02:20 | XMS_ITS | Encounter Summary ---
Author Organization [facility] Address [address] [place] [address] Care Team Providers Care Jet Handler Name Role Phone Unavailable Primary Care Provider Unavailabl e Encounter Details Date Type Department Care Team (Late st Contact Info) Description 11/16/2003 Results Only [facility] - Maple conversion [address] [place] [address] [address] [place] [phone] Social History Tobacco Use Types Packs/Day Years Used Date Smoking Tobacco: Never Assessed Sex and Gender Information Value Date Recorded Sex Assigned at Not on file Gender Identity Not on file Sexual Orientation Not on file documented as of this encounter Plan of Treatment Not on file documented as of this encounter Procedures Procedure Name Priority Date/Time Associated Diagnosis Comments CYTOPATHOLOGY Routine 11/16/2003 0:00 EST documented in this encounter Results * CYTOPATHOLOGY (11/16/2003 0:00 EST) Pathology Report: CYTOPATHOLOGY REPORT Reports generated via electronic interface contain original data; however they are lacking the format of the original report. Caution should be taken when reading/interpreti ng unformatted reports. Name: ? LIZZYRO MARIE ? Accession #: ? [id number] : ? 1950 (Age: 53) ??F ?Collect Date: ? 11/16/2003 Location: ? [facility] ? Receive Date: ? 11/19/2003 Provider: ?MEI DEL CASTILLO RAILROAD CAR REPAIRMAN Copy to: ? Specimen/Source: ?Conventional Pap Test, Cervix/Endocervix Last Menstrual Period: ? 11/02 ? SPECIMEN ADEQUACY ? Satisfactory for Evaluation - transformation zone component absent GENERAL CATEGORIZATION ? Negative for Intraepithelial Lesion or Malignancy ? Document reviewed and electronically signed by: ? ISSA Singh(ASCP) ? Report Date: ??11/24/2003 09:50 End of Report DINORA MCGREGOR 11/16/2003 11/19/2003 Mei Del Castillo RAILROAD CAR REPAIRMAN PATHOLOGY ORDERABLES [facility] [address] [place] [address] documented in this encounter Visit Diagnoses Not on filedocumented in this encounter
--- OUTSIDE RECORDS SUMMARY | 2024-07-13 02:20 | XMS_ITS | Clinical Summary ---
Author Organization [facility] Address [address] [place] [address] Care Team Providers Care Tabulating Supervisor Name Role Phone Unknown, Provider Primary Care Provider Social History Tobacco Use Types Packs/Day Years Used Date Smoking Tobacco: Never Assessed Sex and Gender Information Value Date Recorded Sex Assigned at Not on file Gender Identity Not on file Sexual Orientation Not on file Plan of Treatment Health Maintenance Due Date Last Done Comments Hepatitis C Screen 1950 RSV Immunization ( o r 60+ Years) (1 - 1-dose 60+ series) 2011 Fall Risk Screening 02/26/2016 COVID-19 Vaccine (2022-24 season) 2023 Care Teams Tabulating Supervisor Relationship Specialty Start Date End Date Unknown, Provider, PCP - General 10/15/15
--- OUTSIDE RECORDS SUMMARY | 2024-07-13 02:21 | XMS_ITS | Encounter Summary ---
[place] [address] Care Team Providers Care Cross Tie Maker Name Role Phone Antonio Comer MD Primary Care Provider [phone] Encounter Details Date Type Department Care Team (Late st Contact Info) Description 05/22/2011 Abstract [place] [phone] Mei Mohan, RN Social History Tobacco Use Types Packs/Day Years Used Date Smoking Tobacco: Never Assessed Sex and Gender Information Value Date Recorded Sex Assigned at Not on file Gender Identity Not on file Sexual Orientation Not on file documented as of this encounter Plan of Treatment Not on file documented as of this encounter Visit Diagnoses Not on filedocumented in this encounter Care Teams Cross Tie Maker Relationship Specialty Start Date End Date Antonio Comer MD [address] [place] [address] PCP - General 10/24/10 05/22/11 documented as of this encounter
--- OUTSIDE RECORDS SUMMARY | 2024-07-13 02:21 | XMS_ITS | Encounter Summary ---
Author Organization [facility] Address [facility] [place] [address] Care Team Providers Care Resource Conservationist Name Role Phone Lorne Sorenson MD Primary Care Provider [phone] Encounter Details Date Type Department Care Team (Late st Contact Info) Description 03/20/2007 Orders [place] [address] Andrew Valadez MD [facility] [address] [place] [address] Social History Tobacco Use Types Packs/Day Years Used Date Smoking Tobacco: Never Assessed Sex and Gender Information Value Date Recorded Sex Assigned at Not on file Gender Identity Not on file Sexual Orientation Not on file documented as of this encounter Plan of Treatment Not on file documented as of this encounter Procedures Procedure Name Priority Date/Time Associated Diagnosis Comments SURGICAL PATHOLOGY REPORT Routine 03/20/2007 6:10 PM EDT documented in this encounter Results * Surgical Pathology Report (03/20/2007 6:10 PM EDT) Surgical Pathology Report [id number] ? Location: The signing pathologist has (i) examined the relevant preparation(s) for the specimen(s) and (ii) rendered or confirmed the diagnosis(es). . ?Pathology Addendum Report Addendum Discussion A - Colon biopsy: ?A trichrome stain shows no thickening of the subepithelial collagen ?layer. 03/24/07 [facility] 03/24/07 Verified by: ? Gualberto Pardo MD ?Pathologist ?(Electronic Signature) The attending pathologist whose signature appears on this report has reviewed all diagnostic slides and has edited the gross and/or microscopic portion of the report in rendering the final pathologic diagnosis. ?Pathology Surgical Pathology Final Report Clinical Information Specimen Submitted: A - Random colon Bx, random colon B - Bx, villous atrophy Clinical History: Chronic Diarrhea R/O Microscopic Colitis Clinical Diagnosis: Diarrhea R/O Sprue W/ Biopsies Gross Description A - Labeled/Fixative: Random colon Bx, formalin. Qty/Size/Weight: ?Eight, ranging from 0.1 cm to 0.4 cm in greatest ?dimension. Tissue Description: ?? Soft, leigh tissues. Sections/Processi ng: ??(T2) B - Labeled/Fixative: Small bowel Bx, villous atrophy, formalin. Qty/Size/Weight: ?Seven, averaging 0.3 x 0.3 x 0.2 cm. Tissue Description: ?? Soft, leigh tissues. Sections/Processi ng: ??(T2) ??shane/SNS Microscopic Description Slides reviewed, microscopic description not recorded. Diagnosis A-Colon biopsy: ?? Lymphocytic colitis. (SEE NOTE). ?? NOTE: The colon biopsies show an increased mixed inflammatory infiltrate ?? in the lamina propria and marked surface epithelial injury with increase ?? in intra-epithelial lymphocytes. Rare foci of neutrophilic cryptitis are ?? also present. The subepithelial collagen band appears normal. The ?? morphological findings are consistent with lymphocytic colitis. B-Duodenum biopsy: ?? Duodenal mucosa withi normal villous architecture and no increase in . Diagnosis ?? intra-epithelial lymphocytes. CR-0 03/22/07 03/22/07 Verified by: ? Gualberto Pardo MD ?Pathologist ?(Electronic Signature) The attending pathologist whose signature appears on this report has reviewed all diagnostic slides and has edited the gross and/or microscopic portion of the report in rendering the final pathologic diagnosis. [facility] 03/20/2007 6:10 PM EDT Andrew Valadez MD PATHOLOGY/CYTOLOGY O RDERABLES [facility] documented in this encounter Visit Diagnoses Not on filedocumented in this encounter Care Teams Resource Conservationist Relationship Specialty Start Date End Date Lorne Sorenson MD [address] [place] [address] PCP - General 05/23/11 documented as of this encounter
--- OUTSIDE RECORDS SUMMARY | 2024-07-13 02:21 | XMS_ITS | Encounter Summary ---
Author Organization [facility] Address [facility] [place] [address] Care Team Providers Care Negative Developer Name Role Phone Lorne Sorenson MD Primary Care Provider [phone] Reason for Visit * Reason Comments Eye Problem Follicular bleharoco njunctivitis ou. failed response to topical tx. first dx'd 2000 os. re ccurence 12/2010. aactual date 10/11. pt states eyes have gotten a little better over last couple of weeks but oozing and stickiness remains. ou. puffy at times, needs more light to read,. tearing. Encounter Details Date Type Department Care Team (Late st Contact Info) Description 05/23/2011 8:45 AM EDT Office Visit Ophthalmology at [facility] [place] [address] Jose Michelle MD [facility] [place] [address] Conjunctivitis, chronic, follicular (Primary Dx); Blepharitis of both eyes; Cataract Discharge Disposition: Home Social History Tobacco [...] documented as of this encounter Progress Notes * Jose Michelle MD - 05/23/2011 9:43 AM EDT Ro Ball is a 61 y.o.. Encounter Diagnoses Name Primary? Conjunctivitis, chronic, follicular Yes ??? Blepharitis of both eyes ??? Cataract Symptoms and findings seem much improved as compared with your May 10 letter to me. The DDx hereincludes drug reaction (most likely), chlamydial conjunctivitis (doubt), chronic slow growing bacterial conjunctivitis (possible), viral conjunctivitis (doubt) or molluscum contagiosa related (none seen). I am hopeful that her symptoms will continue to resolve off eye drop therapy. We discussed thepossibility of skin testing to see if she [...] documented in this encounter Nursing Notes * 05/23/2011 8:45 AM EDT >> JOSE MICHELLE [...] Procedure Name Priority Date/Time Associated Diagnosis Comments EYE CULTURE Routine 05/23/2011 12:21 PM EDT Conjunctivitis, chronic, follicular documented in this encounter Results * Eye culture Conjunctiva; Eye, Right (05/23/2011 12:21 PM EDT) Eye Culture ? Patient Name: RO BALL ? Ordered By: JOSE MICHELLE ? MR#: [id number] ?LOC: ??4B ? /Sex: ??1950 (61 years), ? Female ? PROCEDURE: Eye Culture ?SOURCE: Conjunct ? COLLECTED: 05/23/2011 12:21 ? BODY SITE: Right Eye ? STARTED: 05/23/2011 12:21 ? STAINS / PREPARATIONS ? Gram Stain Report ? Verified: 1 14:27 ? Few White Blood Cells seen ? No microorganisms seen. ? FINAL REPORT ? Final Report ? Verified: 1 11:12 ? Rare Coagulase negative Staphylococcus species ? PRELIMINARY REPORT ? Preliminary Report ? Verified: 1 07:52 ? Rare Coagulase negative Staphylococcus species ? ___ ? 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
== END 2024-07-13 02:26 ==
LOC: DI 02:06
PROVIDERS: PCP Physician Assistant; Visit Provider Physician Assistant
DX: M81.0 Age-related osteoporosis without current pathological fracture (principal)
CPT/HCPCS: 77063; 77067; 77080

== ENCOUNTER 2024-12-24 08:52 | Outpatient (REF) | payer MEDICARE, BC, SELFPAY ==
[2024-12-24 19:37] LABS: ALT 17 U/L (14-59); AST 24 U/L (15-37); Albumin 3.8 g/dL (3.4-5.0); Alkaline Phosphatase 57 U/L (46-116); Anion Gap 4.4 mmol/L (3-11); BUN 11 mg/dL (7-18); Bilirubin, Total 0.93 mg/dL (0.2-1.0); CO2 30.6 mmol/L (21.0-32.0); CREATININE 0.9 mg/dL (0.55-1.02); Calcium 8.9 mg/dL (8.5-10.1); Chloride 106 mmol/L (98-107); Glucose 82 mg/dL (74-106); LDL CHOLESTEROL 130 mg/dL (<100); Potassium 4.3 mmol/L (3.5-5.1); Sodium 141 mmol/L (136-145); Total Protein 7.1 g/dL (6.4-8.2)
[2024-12-25 18:49] LABS: Hepatitis C Ab w Rflx HCV PCR Negative (Negative)
== END 2024-12-24 08:53 | disposition home or self-care (01) ==
LOC: NCHCN 08:52
PROVIDERS: PCP Physician Assistant; Visit Provider Physician Assistant
DX: E78.5 Hyperlipidemia, unspecified (principal)
CPT/HCPCS: 80053; 83721; 86803

== ENCOUNTER 2025-06-23 14:57 | Outpatient (REF) | payer MEDICARE, BC, SELFPAY ==
[2025-06-23 21:50] LABS: ALT 15 U/L (14-59); AST 23 U/L (15-37); Albumin 3.9 g/dL (3.4-5.0); Alkaline Phosphatase 51 U/L (46-116); Anion Gap 4.0 mmol/L (3-11); BUN 14 mg/dL (7-18); Bilirubin, Total 1.1 mg/dL (0.2-1.0); CO2 30.0 mmol/L (21.0-32.0); Calcium 8.4 mg/dL (8.5-10.1); Calculated LDL 121 mg/dL (<100); Chloride 104 mmol/L (98-107); Cholesterol 209 mg/dL (<200); Estimated GFR 90.70 (mL/min/1.73m2); Glucose 88 mg/dL (74-106); HDL Cholesterol 71 mg/dL (>or=50); Potassium 4.5 mmol/L (3.5-5.1); Sodium 138 mmol/L (136-145); Total Protein 7.0 g/dL (6.4-8.2); Triglyceride 87 mg/dL (<150)
== END 2025-06-23 14:58 | disposition home or self-care (01) ==
LOC: NCHCN 14:57
PROVIDERS: PCP Physician Assistant; Visit Provider Physician Assistant
DX: I10 Essential (primary) hypertension (principal)
CPT/HCPCS: 80053; 80061

== ENCOUNTER 2025-08-16 16:53 | Outpatient (CLI) | payer MEDICARE, BC, SELFPAY ==
[2025-08-16 11:51] LABS: ESR 1 mm/hr (0-30)
[2025-08-16 12:29] LABS: C-Reactive Protein < 0.50 mg/dL (<or=0.5)
== END 2025-08-16 16:54 | disposition home or self-care (01) ==
LOC: LBO 16:56
PROVIDERS: PCP Physician Assistant; Visit Provider Optometrist
DX: H15.103 Unspecified episcleritis, bilateral (principal)
CPT/HCPCS: 36415; 85652; 86140